=== PATIENT | male | born 1955 | race Caucasian/White ===

== ENCOUNTER 2017-05-26 18:41 | Observation (INO) | payer OTHER, SELFPAY ==
[2017-05-26] MEDS ORDERED: Nitroglycerin 0.4 MG TAB (25 Tab Bottle) ONE (19:03)
[2017-05-26] MEDS ORDERED: Nitroglycerin 2% Ointment 1 INCH/1 GM Packet ONE (19:03)
[2017-05-26 19:28] LABS: #Basophils 0.1 thou/uL (0.0-0.2); #Eosinphils 0.8 thou/uL (0.0-0.7); #Lymphocytes 2.7 thou/uL (1.20-3.40); #Neutrophils 7.5 thou/uL (1.40-6.50); %Basophils 0.7 % (0.0-1.0); %Eosinophils 6.3 % (0.0-10.0); %Lymphocytes 22.2 % (21.0-51.0); %Monocytes 8.1 % (0.0-10.0); %Neutrophils 62.6 % (42.0-75.0); Hemoglobin 14.5 g/dL (14.0-18.0); Mean Corpuscular HGB CONC 27.1 g/dL (32.0-36.0); Mean Corpuscular Hemoglobin 25.4 pg (27.0-31.0); Mean Corpuscular Volume 93.4 fl (80.0-94.0); Mean Platelet Volume 7.1 fL (7.4-10.4); Platelet Count 244 thou/uL (130-400); RBC Distribution Width 11.9 % (11.5-14.5); Red Blood Cell (RBC) Count 5.73 mill/uL (4.70-6.10)
--- NOTE | 2017-05-26 19:53 | RAD ---
FRONTAL RADIOGRAPH CHEST 05/26/17 COMPARISON: None. HISTORY: Chest pain with shortness of breath and congestion. FINDINGS: The lungs are hyperinflated, evidence of air trapping. There is diffuse increased linear interstitial density with bolus change noted in bilateral upper lobes, right greater than left. There is no pneum othorax or pleural fluid and no focal consolidation or alveolar edema. IMPRESSION: Hyperinflated lungs with interstitial prominence and underlying bullous emphysematous change. POS: [facility]
[2017-05-26 19:55] LABS: ALT (SGPT) 16 U/L (8-55); AST (SGOT) 17 U/L (5-34); Alkaline Phosphatase 135 U/L (40-150); Anion Gap 10 mmol/L (10-20); BUN (Urea Nitrogen) 14 mg/dL (8.4-25.7); Bilirubin, Total 0.5 mg/dL (0.2-1.2); CK (CPK) 76 U/L (30-200); Calc. Creatinine Clearance 0 mL/min (70-130); Calcium 9.5 mg/dL (7.8-10.44); Carbon Dioxide 26 mmol/L (22-29); Chloride 104 mmol/L (98-107); Estimated GFR-MDRD Greater than 90; Globulin 3.2 g/dL (2.4-3.5); Glucose 90 mg/dL (70-105); Potassium 4.3 mmol/L (3.5-5.1); Protein, Total 7.2 g/dL (6.0-8.3); Sodium 136 mmol/L (136-145)
[2017-05-26 19:59] LABS: CKMB 2.4 ng/mL (0-6.6); Troponin I Less than 0.010 ng/mL (< 0.028)
[2017-05-26 22:19] LABS: Troponin I 0.012 ng/mL (< 0.028)
[2017-05-26 22:30] VITALS: BMI 17.8
[2017-05-26] MEDS ORDERED: Ondansetron HCl/PF 4 MG/2 ML Vial IVP PRN (23:10)
[2017-05-26] MEDS ORDERED: Docusate 100 MG CAP PO PRN (23:10)
[2017-05-26] MEDS ORDERED: Albuterol Sulfate 2.5 mg/3 ml Neb NEB PRN (23:10)
[2017-05-26] MEDS ORDERED: Nitroglycerin 0.4 MG TAB (25 Tab Bottle) PO PRN (23:10)
[2017-05-26] MEDS ORDERED: Ondansetron ODT 4 MG TAB PO PRN (23:10)
--- NOTE | 2017-05-26 23:20 | PDOC.FPRHP ---
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 He states that sometimes the pain will resolve with rest, but other times it persists. It is described as pressure-like pain, as if someone is sitting on his chest. Initially, it felt like a muscle strain/cramp. It is often in the epigastric region or located directly over the left chest with no radiation to the left arm or jaw. It is associated with shortness of breath. He denies diaphoresis, nausea or vomiting. Patient also states that over the past two days , he has been particularly short of breath. He has been unable to lay back down after waking to use the restroom as he becomes short of breath while laying flat and wakes up short of breath soon after falling asleep. Over the past two days he has also had cough productive of green sputum. He has a 1 PPD smoking history for the past 47 years. He has never officially been diagnosed with COPD , but states a physician once told him he had the signs and symptoms of COPD. Patient denies any fever, nasal congestion, lower extremity swelling, or dysuria. Patient denies any chest pain currently. ED Course: ASA 81 mg, Nitro-Bid 2% ointment, Nitrostat 0.4 mg - Allergies/Adverse Reactions Allergies Allergy/AdvReac Type Severity Reaction Status Date / Time No Known Allergies Allergy Unverified 05/26/17 22:40 - Home Medications Medication Instructions Recorded Confirmed Type Aspirin/Acetaminophen/Caffeine 2 tab PO BID 05/26/17 05/26/17 History [Excedrin Migraine] Docusate [Colace] 100 mg PO BID 05/26/17 05/26/17 History - History PMHx: COPD, Constipation, Migraine SILVER's PSHx: s/p colostomy for obstruction in 2011, Inguinal hernia repair x2 FHx: Grandfather from [place] in his 40's Social: Smokes 1 PPD for past 47 years. Drinks 2-6 beers a night. Endorses history of marijuana use. - Review of Systems General: denies: fever/chills, fatigue ENT: denies: nasal congestion, rhinorrhea Respiratory: reports: cough, congestion, shortness of breath, exercise intolerance Cardiovascular: reports: chest pain, paroxysmal nocturnal dyspnea, orthopnea. denies: edema Gastrointestinal: reports: constipation. denies: nausea, vomiting, abdominal pain Genitourinary: reports: polyuria. denies: incontinence, dysuria Skin: reports: lesions (Lesion on right upper back/neck. Patient states it has been present since he was young. It has grown in size.). denies: rashes Musculoskeletal: denies: pain, tenderness, stiffness Neurological: denies: numbness, syncope, seizure, weakness Psychological: denies: anxiety, depression - Vital signs BP: [171/109] HR: [73] RR: [19] Tmax: [98.3] Pox: [95]% on [RA] Wt: [54.5 kg] - Physical Exam Constitutional: NAD, awake, alert and oriented, well developed HEENT: normocephalic and atraumatic, PERRLA, EOMI, no scleral icterus, normal nasal mucosa, MMM, oropharynx clear, other (Poor dentition) Neck: supple Chest: no-tender to palpation, no lesions Heart: RRR, normal S1/S2, no murmurs/rubs/gallops, pulses present, no edema -Lungs: Diffuse expiratory wheezing throughout. Decreased breath sounds in bilateral lung bases. Abdomen: soft, non-tender, bowel sounds present, other (Colostomy with good output) Musculoskeletal: normal structure, normal tone Neurological: no focal deficit -Skin: Lesion on upper right shoulder/back. Irregular in appearance. Measures approximately 5 cm by 2.5 cm. Heme/Lymphatic: no purpura, no petechia Psychiatric: normal mood and affect, good judgment and insight FMR H&P: Results - Labs Result Diagrams: 05/26/17 19:15 05/26/17 19:15 Lab results: WBC 12.0 thou/uL (4.8-10.8) H 05/26/17 19:15 Hgb 14.5 g/dL (14.0-18.0) 05/26/17 19:15 Hct 53.5 % (42.0-52.0) H 05/26/17 19:15 MCV 93.4 fl (80.0-94.0) 05/26/17 19:15 Plt Count 244 thou/uL (130-400) 05/26/17 19:15 Neutrophils % 62.6 % (42.0-75.0) 05/26/17 19:15 Sodium 136 mmol/L (136-145) 05/26/17 19:15 Potassium 4.3 mmol/L (3.5-5.1) 05/26/17 19:15 Chloride 104 mmol/L (98-107) 05/26/17 19:15 Carbon Dioxide 26 mmol/L (22-29) 05/26/17 19:15 BUN 14 mg/dL (8.4-25.7) 05/26/17 19:15 Creatinine 0.83 mg/dL (0.6-1.3) 05/26/17 19:15 Glucose 90 mg/dL (70-105) 05/26/17 19:15 Calcium 9.5 mg/dL (7.8-10.44) 05/26/17 19:15 Total Bilirubin 0.5 mg/dL (0.2-1.2) 05/26/17 19:15 AST 17 U/L (5-34) 05/26/17 19:15 ALT 16 U/L (8-55) 05/26/17 19:15 Alkaline Phosphatase 135 U/L (40-150) 05/26/17 19:15 Creatine Kinase 76 U/L (30-200) 05/26/17 19:15 CK-MB (CK-2) 2.4 ng/mL (0-6.6) 05/26/17 19:15 B-Natriuretic Peptide 24.7 pg/mL (0-100) 05/26/17 19:15 Serum Total Protein 7.2 g/dL (6.0-8.3) 05/26/17 19:15 Albumin 4.0 g/dL (3.5-5.0) 05/26/17 19:15 - EKG Interpretation EKG: NSR, peaked twaves, shortened NM interval - Radiology Interpretation Chest x-ray Status: image reviewed by me, report reviewed by me Additional comment: Hyperinflated lungs with interstitial prominence and underlying emphysematous change FMR H&P: A/P - Problem List (1) COPD exacerbation Current Visit: Yes Status: Acute Code(s): J44.1 - CHRONIC OBSTRUCTIVE PULMONARY DISEASE W (ACUTE) EXACERBATION (2) Atypical chest pain Current Visit: Yes Status: Acute Code(s): R07.89 - OTHER CHEST PAIN (3) Constipation Current Visit: Yes Status: Chronic Code(s): K59.00 - CONSTIPATION, UNSPECIFIED (4) Elevated BP without diagnosis of hypertension Current Visit: Yes Status: Acute Code(s): R03.0 - ELEVATED BLOOD-PRESSURE READING, W/O DIAGNOSIS OF HTN (5) Skin lesion of back Current Visit: Yes Status: Chronic Code(s): L98.9 - DISORDER OF THE SKIN AND SUBCUTANEOUS TISSUE, UNSPECIFIED (6) Alcohol abuse Current Visit: Yes Status: Chronic Code(s): F10.10 - ALCOHOL ABUSE, UNCOMPLICATED (7) Tobacco abuse Current Visit: Yes Status: Chronic Code(s): Z72.0 - TOBACCO USE - Plan 1. Atypical chest pain - Likely 2/2 to COPD exacerbation - Cardiolite exercise stress test in the AM - Nitro PRN - ASA daily - Trend CE's - EKG NSR with peaked t-waves in lead II - Repeat EKG pending - NPO at midnight - Risk stratification labs: FLP, HgA1c, TSH, Mg, P 2. COPD exacerbation - Patient started on levoquin 750 mg PO daily - Prednisone 40 mg for 5 days - Duonebs q6h scheduled; albuterol q2h for breakthrough shortness of breath and wheezing - Monitor respiratory status - O2 PRN for sats <92% - CXR consistent with emphysematous changes associated with COPD 3. Constipation - On daily colace - s/p colostomy for obstruction 4. Newly diagnosed HTN - BP 161/108 on admission with multiple elevated readings >4 hours apart - Will start antihypertensive and titrate to goal 5. Skin lesion of back - Irregular and has grown over the years - Measures approximately 5 cm long by 2.5 cm wide - Recommend biopsy of lesion to rule out squamous cell carcinoma or other malignant pathology - Possibly keratoacanthoma vs. SCC 6. 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 Alcohol abuse history - [employer] T[employer] on cessation - ASE protocol without medications Disposition/LOS: Admit to telemetry for observation. Plan for stress test in AM. Treat COPD exacerbation and plan to d/c home tomorrow if stress test negative. FMR H&P: Upper Level - Plan I, Wilberto Elkins MD, have evaluated this patient and agree with findings/plan as outlined by sales and marketing intern resident. Pertinent changes/additions are listed here. 1) Atypical chest pain, likely 2/2 #2: However, will place in observation to telemetry and proceed with ACS rule out. Cardiac enzymes have so far been negative. EKG with some isolated peaked t-waves but does not seem to have any major significance, repeat 12-lead pending. Patient currently asymptomatic. History not entirely convincing of cardiac etiology and, overall, more consistent with COPD exacerbation. Nonetheless, HEART score is 4 so will proceed with stress test in AM. Continue prn nitro, O2 for chest pain overnight. Pt already loaded with aspirin. Will add on other appropriate treatment should patient be proven to have CAD. Checking FLP and A1c for further risk stratification. 2) COPD exacerbation: Starting nebs, steroids, antibiotics. CXR and physical exam findings all consistent. Patient needs outpatient PFTs and pulmonology referral if funded. Tobacco abuse education. 3) HTN (new dx): starting HCTZ 4) Multisubstance abuse: counseling. ASE protocol. 5) Large skin lesion: keratoacanthoma v. SCC; if possible, biopsy while here but if not will refer for oupt procedure. Attending Addendum - Attending Addendum Date/Time: 05/28/17 2341 I personally evaluated the patient and discussed the management with Dr. Roper and Dr. Elkins at time of admission. I agree with the History, Examination, Assessment and Plan documented above without any additions noted. 62 yo male with complaint of chest pain and SYKES/SOB presents to ER for evaluation. Admitted for ACS rule out. No evidence of acute cardiac event at present. Stress in AM. Start ASA and other cardiac meds. CP also appears to be related to Acute COPD exacerbation. Will treat with carlos breathing treatments, oral antibiotics, and oral steroids. Treat and adjust medications based on co-morbidities. Labs ordered to further stratify cardiovascular risk. Janneth
[2017-05-26] MEDS ORDERED: methylPREDNISolone Sod Succ/PF 125 MG/2 ML VIAL IVP SCH (23:30)
[2017-05-27] MEDS: Nicotine 14 MG PATCH TD SCH
[2017-05-27 01:15] LABS: Troponin I Less than 0.010 ng/mL (< 0.028)
[2017-05-27 04:54] LABS: Hemoglobin A1c 5.1 % (4.0-6.0)
[2017-05-27 05:01] LABS: Cardiac Risk 2.8 (Less than 4.5)
[2017-05-27 05:03] LABS: Phosphorus 1.8 mg/dL (2.3-4.7)
[2017-05-27] MEDS ORDERED: Potassium Phosphate 9 MMOL in Sodium Chloride 0.9% 100 ML IVPB SCH (05:15)
[2017-05-27] MEDS: Nitroglycerin 2% Ointment 1 INCH/1 GM Packet TOP SCH ×2 (06:06)
--- NOTE | 2017-05-27 07:44 | PDOC.FM ---
- Subjective Subjective: Complains of a chronic cough productive of sputum. Denies chest pain this am. Endorses mild shortness of breath. He says his chest pain starts in his midepigastric region and radiates to his entire chest; feels like a gas bubble and also like pressure. Worse with taking a breath in. - Objective MAR Reviewed: Yes Vital Signs & Weight: Vital Signs (12 hours) Temp Pulse Resp BP BP Pulse Ox 05/27/17 04:13 97.9 F 83 24 H 153/104 H 153/104 H 92 L 05/26/17 23:50 83 16 93 L 05/26/17 23:49 98.3 F 83 20 155/87 H 93 L 05/26/17 23:46 155/87 H 05/26/17 22:18 98.3 F 75 19 171/109 H 95 Weight Weight 54.839 kg I&O: 05/26/17 05/27/17 05/28/17 06:59 06:59 06:59 Intake Total 390 Output Total 600 Balance -210 Result Diagrams: 05/26/17 19:15 05/26/17 19:15 <Layla Salinas - Last Filed: 05/27/17 09:26> - Objective Vital Signs & Weight: Vital Signs (12 hours) Temp Pulse Resp BP BP Pulse Ox 05/27/17 15:00 98.1 F 106 H 20 158/97 H 91 L 05/27/17 14:30 87 20 92 L 05/27/17 13:30 98.4 F 103 H 20 180/103 H 94 L 05/27/17 12:00 180/103 H 05/27/17 09:04 97.7 F 96 16 05/27/17 08:00 149/102 H 05/27/17 07:59 96 16 94 L 05/27/17 07:50 97.7 F 88 16 149/102 H 95 05/27/17 04:13 97.9 F 83 24 H 153/104 H 153/104 H 92 L Weight Admit Weight 54.839 kg Weight 54.839 kg I&O: 05/26/17 05/27/17 05/28/17 06:59 06:59 06:59 Intake Total 390 Output Total 600 Balance -210 Result Diagrams: 05/26/17 19:15 05/26/17 19:15 <Kirsten Keysherine - Last Filed: 05/27/17 15:51> Phys Exam - Physical Examination Constitutional: NAD HEENT: PERRLA, moist MMs Respiratory: no wheezing decreased breath sounds bilaterally Cardiovascular: RRR, no significant murmur Gastrointestinal: soft, non-tender, no distention hypoactive bowel sounds Musculoskeletal: no edema Neurological: non-focal, normal sensation, moves all 4 limbs Psychiatric: normal affect, A&O x 3 Skin: no rash, cap refill <2 seconds <Layla Salinas - Last Filed: 05/27/17 09:26> Dx/Plan (1) Atypical chest pain Code(s): R07.89 - OTHER CHEST PAIN Status: Acute (2) COPD exacerbation Code(s): J44.1 - CHRONIC OBSTRUCTIVE PULMONARY DISEASE W (ACUTE) EXACERBATION Status: Acute (3) HTN (hypertension) Code(s): I10 - ESSENTIAL (PRIMARY) HYPERTENSION Status: Acute (4) Hypophosphatemia Code(s): E83.39 - OTHER DISORDERS OF PHOSPHORUS METABOLISM Status: Acute (5) Alcohol abuse Code(s): F10.10 - ALCOHOL ABUSE, UNCOMPLICATED Status: Chronic (6) Constipation Code(s): K59.00 - CONSTIPATION, UNSPECIFIED Status: Chronic (7) Skin lesion of back Code(s): L98.9 - DISORDER OF THE SKIN AND SUBCUTANEOUS TISSUE, UNSPECIFIED Status: Chronic (8) Tobacco abuse Code(s): Z72.0 - TOBACCO USE Status: Chronic - Plan Plan: 62 yo male who presents with atypical chest pain, admitted for his atypical chest pain likely d/t a suspected COPD exacerbation. 1.)Atypical chest pain-pharm stress test this am. 2.) Suspected COPD exacerbation-He received 125 solumedrol in the ER and was placed on prednisone 40mg PO, Levaquin 750mg IV, duonebs q6h scheduled, and albuterol q2h prn. 3.) HTN ,new, uncontrolled- 25mg HCTZ BID 4) Hypophosphatemia-replaced this am after stress. 5.) Tobacco abuse-will [place] on cessation. Will provide a nicotine patch prn. Recommend outpatient chest CT screening for lung cancer. 6.)Keratoacanthoma vs BCC vs SCC- will recommend outpatient work-up. <Layla Salinas - Last Filed: 05/27/17 09:26> Attending Addendum - Attending Addendum Date/Time: 05/27/17 2350 I personally evaluated the patient and discussed the management with Dr. Salinas. I agree with the History, Examination, Assessment and Plan documented above with any addition or exceptions noted below. Pt seen down in stress test. Oxygen sats still border line. Will continue treatment for copd exacerbation. f/u with stress test results. Pt likely needs another day in the hospital for breathing to improve prior to discharge. <Kaley Keys - Last Filed: 05/27/17 15:51>
[2017-05-27] MEDS ORDERED: Aspirin 325 MG TAB PO SCH (09:00)
[2017-05-27] MEDS ORDERED: hydrALAZINE 25 MG TAB PO SCH (09:00)
[2017-05-27] MEDS ORDERED: FLU VACC QS2017-18 36 mo. & older 0.5 ML SYRINGE IM ONE (09:00)
[2017-05-27] MEDS ORDERED: Docusate 100 MG CAP PO SCH (09:00)
[2017-05-27] MEDS ORDERED: Regadenoson 0.4 MG/5 ML SYRINGE ONE (09:10)
[2017-05-27 11:55] LABS: Amphetamine Not Detected (NotDetected); Barbiturates Screen Not Detected (NotDetected); Benzodiazepine Screen Not Detected (NotDetected); Cocaine Metabolite Screen Not Detected (NotDetected); Medtox Control Line Valid? VALID (VALID); Medtox Reader # READER 4; Methadone Not Detected (NotDetected); Methamphetamine Not Detected (NotDetected); Opiate Screen Not Detected (NotDetected); Oxycodone Screen Not Detected (NotDetected); Phencyclidine (PCP) Not Detected (NotDetected); THC/Cannabinoid Screen Detected (NotDetected); Tricyclic Screen Not Detected (NotDetected)
[2017-05-27] MEDS: Docusate 100 MG CAP PO SCH ×2 (12:54→20:00)
[2017-05-27] MEDS: predniSONE 20 MG TAB PO SCH (12:54)
[2017-05-27] MEDS: Hydrochlorothiazide 25 MG TAB PO SCH ×2 (12:54→20:00)
[2017-05-27] MEDS: Acetaminophen 325 MG TAB PO PRN (12:58)
--- NOTE | 2017-05-27 14:10 | NM ---
CARDIAC SPECT: HISTORY: A 62-year-old male with chest pain, COPD, smoker. TECHNIQUE: A myocardial perfusion scan was performed using the single-isotope 1-day protocol with Technetium 99m sestamibi. Nine mCi were injected intravenously for the rest exam followed by 33 mCi for the stress study. Pharmacologic stress with LexiScan is monitored and interpreted by Rafy Engel, nurse practiti hernan. FINDINGS: Homogeneous tracer distribution is seen in the myocardial segments on stress and rest images without fixed or reversible defects. GATED SPECT LVEF: 62%. WALL MOTION EXAM: Normal. IMPRESSION: Normal myocardial perfusion scan. POS: [facility]
[2017-05-27] MEDS ORDERED: hydrALAZINE 20 MG/ML VIAL SLOW IVP PRN (15:23)
[2017-05-27] MEDS ORDERED: Labetalol HCl 100 MG/20 ML VIAL SLOW IVP PRN (15:25)
--- NOTE | 2017-05-27 15:38 | EKG ---
Test Reason : ROUTINE Blood Pressure : / mmHG Vent. Rate : 080 BPM Atrial Rate : 080 BPM P-R Int : 108 ms QRS Dur : 092 ms QT Int : 370 ms P-R-T Axes : 065 073 076 degrees QTc Int : 426 ms Sinus rhythm with short AR Incomplete right bundle branch block Septal infarct , age undetermined cannot be excluded Abnormal ECG Confirmed by FAROOQ HOLMAN ([id number]) on 05/27/2017 3:38:38 PM Referred By: ALEXANDRA Confirmed By:FAROOQ HOLMAN
[2017-05-28] MEDS: Nicotine 14 MG PATCH TD SCH (00:01)
[2017-05-28] MEDS: Acetaminophen 325 MG TAB PO PRN (04:28)
[2017-05-28] MEDS: Docusate 100 MG CAP PO SCH (08:17)
[2017-05-28] MEDS: Hydrochlorothiazide 25 MG TAB PO SCH (08:17)
[2017-05-28] MEDS: predniSONE 20 MG TAB PO SCH (08:18)
--- NOTE | 2017-05-28 12:01 | PDOC.FM ---
- Subjective Subjective: No acute events overnight. Pt denies shortness of breath or chest pain. He would like to quit smoking and would like assistance. - Objective MAR Reviewed: Yes Vital Signs & Weight: Vital Signs (12 hours) Temp Pulse Resp BP BP Pulse Ox 05/28/17 08:29 95 05/28/17 08:28 80 20 95 05/28/17 08:17 97.3 F L 87 18 05/28/17 07:44 97.3 F L 87 18 127/95 H 93 L 05/28/17 04:28 97.7 F 84 18 138/94 H 94 L 05/28/17 01:13 94 L 05/28/17 00:01 142/94 H Weight Admit Weight 54.839 kg Weight 54.839 kg I&O: 05/27/17 05/28/17 05/29/17 06:59 06:59 06:59 Intake Total 390 480 Output Total 600 600 Balance -210 -120 Result Diagrams: 05/26/17 19:15 05/26/17 19:15 <Layla Salinas - Last Filed: 05/28/17 11:59> - Objective Vital Signs & Weight: Vital Signs (12 hours) Temp Pulse Resp BP Pulse Ox 05/28/17 11:29 97.9 F 89 18 145/96 H 92 L 05/28/17 08:29 95 05/28/17 08:28 80 20 95 05/28/17 08:17 97.3 F L 87 18 05/28/17 07:44 97.3 F L 87 18 127/95 H 93 L Weight Admit Weight 54.839 kg Weight 54.839 kg I&O: 05/27/17 05/28/17 05/29/17 06:59 06:59 06:59 Intake Total 329 713 4710 Output Total 600 600 Balance -210 -120 1625 Result Diagrams: 05/26/17 19:15 05/26/17 19:15 <Kaley Keys - Last Filed: 05/28/17 18:36> Phys Exam - Physical Examination Constitutional: NAD HEENT: PERRLA, moist MMs Respiratory: no wheezing, no rales, clear to auscultation bilateral Cardiovascular: RRR, no significant murmur Gastrointestinal: soft, non-tender, no distention Musculoskeletal: no edema, pulses present Neurological: non-focal, normal sensation Psychiatric: normal affect, A&O x 3 Skin: no rash <Layla Salinas - Last Filed: 05/28/17 11:59> Dx/Plan (1) Atypical chest pain Code(s): R07.89 - OTHER CHEST PAIN Status: Acute (2) COPD exacerbation Code(s): J44.1 - CHRONIC OBSTRUCTIVE PULMONARY DISEASE W (ACUTE) EXACERBATION Status: Acute (3) HTN (hypertension) Code(s): I10 - ESSENTIAL (PRIMARY) HYPERTENSION Status: Acute (4) Hypophosphatemia Code(s): E83.39 - OTHER DISORDERS OF PHOSPHORUS METABOLISM Status: Acute (5) Alcohol abuse Code(s): F10.10 - ALCOHOL ABUSE, UNCOMPLICATED Status: Chronic (6) Constipation Code(s): K59.00 - CONSTIPATION, UNSPECIFIED Status: Chronic (7) Skin lesion of back Code(s): L98.9 - DISORDER OF THE SKIN AND SUBCUTANEOUS TISSUE, UNSPECIFIED Status: Chronic (8) Tobacco abuse Code(s): Z72.0 - TOBACCO USE Status: Chronic - Plan Plan: 62 yo male who presents with atypical chest pain, admitted for his atypical chest pain likely d/t a suspected COPD exacerbation. 1.)Atypical chest pain-pharm stress test normal. 2.) Suspected COPD exacerbation-He received 125 solumedrol in the ER and was placed on prednisone 40mg PO, Levaquin 750mg IV, duonebs q6h scheduled, and albuterol q2h prn. We will discharge the pt on a 5 course of prednisone and levaquin with albuterol prn and recommend follow-up for spirometry in our clinic. 3.) HTN ,new,controlled - 25mg HCTZ BID 4) Hypophosphatemia, resolved. 5.) Tobacco abuse-will [place] on cessation. Will provide a nicotine patch prn. Recommend outpatient chest CT screening for lung cancer. Will send the pt with a prescription for nicotine patches. 6.)Keratoacanthoma vs BCC vs SCC- recommend outpatient workup. <Layla Salinas - Last Filed: 05/28/17 11:59> Attending Addendum - Attending Addendum Date/Time: 05/28/17 5169 I personally evaluated the patient and discussed the management with Dr. Salinas. I agree with the History, Examination, Assessment and Plan documented above with any addition or exceptions noted below. Stress test negative. Breathing improved. Pt will be discharged. <Kaley Keys - Last Filed: 05/28/17 18:36>
[2017-05-28 12:18] VITALS: BP 145/96; TEMP 97.9
--- NOTE | 2017-05-30 19:49 | EKG ---
Test Reason : CP Blood Pressure : / mmHG Vent. Rate : 092 BPM Atrial Rate : 092 BPM P-R Int : 108 ms QRS Dur : 078 ms QT Int : 336 ms P-R-T Axes : 074 070 075 degrees QTc Int : 415 ms Sinus rhythm with short [place] Septal infarct , age undetermined Peaked T waves Abnormal ECG Confirmed by GUILLE HAM, IRMA Arroyo ([id number]), avid editor JARED WELCH ([id number]) on 05/30/2017 7:49:40 PM Referred By: GUILLE Confirmed By:IRMA HAN MD
== END 2017-05-28 14:11 | disposition home or self-care (01) ==
LOC: ERS 18:41 → 2SW 20:40
PROVIDERS: ADMIT Student in an Organized Health Care Education/Training Program; ATTEND Student in an Organized Health Care Education/Training Program
DX: R07.89 Other chest pain (principal); K59.00 Constipation, unspecified; G43.909 Migraine, unspecified, not intractable, without status migrainosus; F17.210 Nicotine dependence, cigarettes, uncomplicated; I10 Essential (primary) hypertension; E83.39 Other disorders of phosphorus metabolism; L98.9 Disorder of the skin and subcutaneous tissue, unspecified; F10.10 Alcohol abuse, uncomplicated; Z79.899 Other long term (current) drug therapy; Z88.6 Allergy status to analgesic agent; Z88.8 Allergy status to other drugs, medicaments and biological substances; Z93.3 Colostomy status; Z98.890 Other specified postprocedural states
CPT/HCPCS: 36415; 71045; 78452; 80053; 80061; 80306; 82553; 83036; 83735; 83880; 84100; 84443; 84484; 85025; 90471; 90682; 90732; 93005; 93010; 93017; 94640; 94760; 96365; 96366; 96375; A9500; G0008; G0009; G0378; J2785; J2930; J7050; J7506; J7620; Q2036

== ENCOUNTER 2017-12-18 23:41 | Inpatient (IN) | payer OTHER ==
[2017-12-19] MEDS ORDERED: Ondansetron HCl/PF 4 MG/2 ML Vial ONE (00:07)
[2017-12-19] MEDS ORDERED: Morphine 4 MG/ML VIAL ONE ×2 (00:07→02:37)
[2017-12-19 00:14] LABS: #Basophils 0.1 thou/uL (0.0-0.2); #Eosinphils 0.2 thou/uL (0.0-0.7); #Lymphocytes 1.4 thou/uL (1.20-3.40); #Monocytes 0.3 thou/uL (0.11-0.59); #Neutrophils 9.3 thou/uL (1.40-6.50); %Basophils 0.5 % (0.0-1.0); %Eosinophils 1.4 % (0.0-10.0); %Lymphocytes 12.2 % (21.0-51.0); %Monocytes 2.7 % (0.0-10.0); %Neutrophils 83.2 % (42.0-75.0); Hemoglobin 19.1 g/dL (14.0-18.0); Mean Corpuscular HGB CONC 33.3 g/dL (32.0-36.0); Mean Corpuscular Hemoglobin 31.7 pg (27.0-31.0); Mean Corpuscular Volume 95.1 fL (78.0-98.0); Mean Platelet Volume 6.4 fL (7.4-10.4); Platelet Count 275 thou/uL (130-400); Red Blood Cell (RBC) Count 6.03 mill/uL (4.70-6.10); White Blood Cell (WBC) Count 11.2 thou/uL (4.8-10.8)
[2017-12-19 00:33] LABS: ALT (SGPT) 34 U/L (8-55); AST (SGOT) 30 U/L (5-34); Alkaline Phosphatase 154 U/L (40-150); Anion Gap 18 mmol/L (10-20); BUN (Urea Nitrogen) 11 mg/dL (8.4-25.7); Bilirubin, Total 1.1 mg/dL (0.2-1.2); Calc. Creatinine Clearance 0 mL/min (70-130); Calcium 11.2 mg/dL (7.8-10.44); Carbon Dioxide 28 mmol/L (22-29); Chloride 92 mmol/L (98-107); Estimated GFR-MDRD Greater than 90; Globulin 4.1 g/dL (2.4-3.5); Glucose 121 mg/dL (70-105); Lipase 44 U/L (8-78); Protein, Total 9.1 g/dL (6.0-8.3); Sodium 134 mmol/L (136-145)
[2017-12-19 02:23] LABS: Bilirubin Negative (Negative); Blood, Urine Negative (Negative); Clarity CLEAR (Clear); Glucose, Urine (Dipstick) Negative (Negative); Leukocyte Negative (Negative); Nitrite Negative (Negative); Protein, Urine (Dipstick) 30 mg/dL (Neg-Trace); Specific Gravity, Urine 1.038 (1.002-1.036); Urobilinogen 0.2 mg/dL (0.2-1.0); pH, Urine 7.5 (5.0-9.0)
[2017-12-19 02:25] LABS: Bacteria/HPF None Seen HPF (None Seen); RBC/HPF 0-3 HPF (0-3); Squamous Epithelial None Seen HPF (0-3); WBC/HPF None Seen HPF (0-3)
[2017-12-19 02:26] LABS: Sperm-AUWi Flag 24.9 (0-9.9)
[2017-12-19 02:33] LABS: Hyaline Casts/LPF NONE SEEN LPF (0-3 Hyaline); Sperm/HPF 1+ HPF (None Seen)
[2017-12-19] MEDS ORDERED: cloNIDine 0.1 MG TAB ONE (02:46)
[2017-12-19] MEDS ORDERED: Ondansetron HCl/PF 4 MG/2 ML Vial IVP PRN ×2 (03:29→10:37)
[2017-12-19] MEDS ORDERED: Ondansetron ODT 4 MG TAB SL PRN (03:29)
[2017-12-19] MEDS ORDERED: Dextrose 5 % And 0.9 % NaCl 1,000 ML IV SCH (03:30)
[2017-12-19 05:40] VITALS: BMI 17.6
[2017-12-19] MEDS ORDERED: Chloraseptic Spray 180 ml Bottle PO PRN (07:14)
--- NOTE | 2017-12-19 07:34 | RAD ---
PORTABLE CHEST: Date: 12/19/17 PROVIDED CLINICAL HISTORY: NG tube placement. FINDINGS: Single frontal view of the lower chest and upper abdomen was submitted. An enteric catheter is noted, tip of which overlies the left upper quadrant laterally. The visualized lung bases are clear. There is no evidence for pneumoperitoneum. IMPRESSION: As above. POS: [facility]
--- NOTE | 2017-12-19 08:20 | CT ---
PRELIMINARY REPORT/[facility]/EMERGENCY AFTER HOURS PROCEDURE: EXAM: CT Abdomen and Pelvis With Intravenous Contrast EXAM DATE/TIME: 12/19/2017 12:54 AM CLINICAL HISTORY: 62 years old, male; Pain; Abdominal pain; Epigastric; Patient HX: PT presents with 7 hours of epigast fadia pain. PT denies n/v, urinary symptoms, fever. PT has colostomy due to 'blockage' and he feels it has had less output today. PT denies h/o similar pain. TECHNIQUE: Axial computed tomography images of the abdomen and pelvis with intravenous contrast. Coronal reforma tted images were created and reviewed. CONTRAST: 100 ml of ISOVUE administered intravenously. COMPARISON: No relevant prior studies available. FINDINGS: Lower thorax: There are emphysematous changes of the lung bases and there is atelectatic change or sc arring present. ABDOMEN: Liver: There is focal fat in liver adjacent to the falciform ligament. Gallbladder and bile ducts: Normal. No calcified stones. No ductal dilation. Pancreas: There is mild pancreatic ductal dilation but no visible mass or inflammatory change. Spleen: Normal. No splenomegaly. Adrenals: Normal. No mass. Kidneys and ureters: Normal. No hydronephrosis. Stomach and bowel: There are postoperative changes involving the bowel. 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 There are dilated small bowel loops with air-fluid levels with transition at the level of the i leum suspicious for small bowel obstruction. Appendix: No evidence of appendicitis. PELVIS: Bladder: Unremarkable as visualized. Reproductive: Unremarkable as visualized. ABDOMEN and PELVIS: Intraperitoneal space: Normal. No free air. No significant fluid collection. Bones/joints: There is diffuse osteopenia and there are degenerative changes of the spine. There are chronic right-sided rib fractures. There is mild S. type scoliosis. Soft tissues: Unremarkable. Vasculature: There are atherosclerotic aortic and iliac and femoral artery calcifications. Lymph nodes: Normal. No enlarged lymph nodes. IMPRESSION: There are dilated small bowel loops with air-fluid levels with transition at the level of the ileum s uspicious for small bowel obstruction. Thank you for allowing us to participate in the care of your patient. Dictated and Authenticated by: Doron Gregory MD 12/19/2017 2:25 AM Central Time ([place] & [place]) FINAL REPORT EMERGENCY AFTER HOURS CT ABDOMEN AND PELVIS: Date: 12/19/17 IMPRESSION: I agree with the preliminary interpretation given by [facility]. Evidence for small bowel obstruction. Dist al jejunum/proximal ileum is suspected as the transition point. There is no evidence for pneumatosis or portal venous gas. There is no evidence for pneumoperitoneum. POS: [facility]
--- NOTE | 2017-12-19 10:21 | HP ---
DATE OF ADMISSION: 12/19/2017 CHIEF COMPLAINT: Small-bowel obstruction. HISTORY OF PRESENT ILLNESS: This is a 62-year-old male with a history of left colectomy with Singletary n's procedure and end colostomy at [facility] 6 years ago for diverticulitis. His postop cou rse was uneventful. Mr. Vergara is not desired colostomy reversal. He has had no problems until last n ight, started to have more belly distention, nausea, and vomiting. Seen in the emergency department where he was found to have a small-bowel obstruction on CT scan. Hemodynamically stable. Pain is co ntrolled. NG tube is placed first thing this morning. He is having some fairly significant pain in his oropharynx from the NG tube. Denies previous obstruction. Denies inflammatory bowel disease or Crohn's. Unsure of recent colonoscopy. PAST MEDICAL HISTORY: Includes dyslipidemia, mild chronic COPD. PAST SURGICAL HISTORY: As above. MEDICINES TAKEN DAILY: Lipitor. ALLERGIES: No known drug allergies. SOCIAL HISTORY: He smokes. No alcohol or other drugs. REVIEW OF SYSTEMS: Otherwise, negative unless described above. PHYSICAL EXAMINATION: VITAL SIGNS: Blood pressure 181/85, pulse 80, respirations 20, temperature 97.5. HEENT: Sclerae are anicteric. Oropharynx clear. NECK: No lymphadenopathy. CHEST: Clear. HEART: Regular rhythm. ABDOMEN: Soft. Diffuse mildly tender without guarding or rebound. Diffuse decrease in bowel sounds . Well-healed midline incision without hernia. Colostomy in the left abdomen has stool in the bag. EXTREMITIES: No ischemia or edema to extremities. LABORATORY DATA: White blood cell count is 11, hemoglobin is 19, platelet count is 275. Sodium 134, potassium 4.0, creatinine 0.84. ASSESSMENT: 1. Small-bowel obstruction, likely secondary to adhesions. 2. Hypertension. PLAN: NG tube, n.p.o. today likely Gastrografin, small bowel follow through tomorrow if not improved .
[2017-12-19] MEDS ORDERED: Promethazine HCl 25 MG/ML VIAL IM PRN (10:37)
[2017-12-19] MEDS ORDERED: Dextrose 50% Abboject 50 ML SYRINGE SLOW IVP PRN (10:37)
[2017-12-19] MEDS ORDERED: Labetalol HCl 100 MG/20 ML VIAL SLOW IVP PRN (10:37)
[2017-12-19] MEDS ORDERED: Dextrose 5% in Water 1,000 ML IV PRN (10:37)
[2017-12-19] MEDS ORDERED: Ondansetron ODT 4 MG TAB PO PRN (10:37)
[2017-12-19] MEDS: Sodium Chloride 0.9% 1,000 ML IV SCH ×2 (12:12→20:46)
[2017-12-19] MEDS: Morphine 4 MG/ML VIAL SLOW IVP PRN ×2 (13:31→20:25)
[2017-12-19] MEDS ORDERED: ISOVUE-370 76%-LOCM 1 ML ONE (14:29)
[2017-12-19] MEDS: Enoxaparin Sodium 40 MG/0.4 ML SYRINGE SC SCH (20:25)
[2017-12-19] MEDS: Famotidine/PF 20 mg/2ml Vial SLOW IVP SCH (20:25)
[2017-12-20] MEDS: Morphine 4 MG/ML VIAL SLOW IVP PRN ×6 (03:33→20:18)
[2017-12-20 04:58] LABS: #Eosinphils 0.2 thou/uL (0.0-0.7); #Lymphocytes 1.7 thou/uL (1.20-3.40); #Monocytes 0.7 thou/uL (0.11-0.59); #Neutrophils 5.5 thou/uL (1.40-6.50); %Basophils 0.4 % (0.0-1.0); %Eosinophils 2.3 % (0.0-10.0); %Lymphocytes 21.1 % (21.0-51.0); %Monocytes 8.1 % (0.0-10.0); %Neutrophils 68.1 % (42.0-75.0); Hemoglobin 17.8 g/dL (14.0-18.0); Mean Corpuscular HGB CONC 33.3 g/dL (32.0-36.0); Mean Corpuscular Hemoglobin 32.3 pg (27.0-31.0); Mean Platelet Volume 6.8 fL (7.4-10.4); Platelet Count 239 thou/uL (130-400); RBC Distribution Width 12.1 % (11.5-14.5); White Blood Cell (WBC) Count 8.1 thou/uL (4.8-10.8)
[2017-12-20 05:17] LABS: Anion Gap 13 mmol/L (10-20); BUN (Urea Nitrogen) 10 mg/dL (8.4-25.7); Calc. Creatinine Clearance 80 mL/min (70-130); Calcium 8.5 mg/dL (7.8-10.44); Carbon Dioxide 23 mmol/L (22-29); Chloride 106 mmol/L (98-107); Estimated GFR-MDRD Greater than 90; Glucose 95 mg/dL (70-105); Potassium 3.4 mmol/L (3.5-5.1); Sodium 139 mmol/L (136-145)
[2017-12-20] MEDS: Sodium Chloride 0.9% 1,000 ML IV SCH ×3 (07:02→20:19)
[2017-12-20] MEDS: Famotidine/PF 20 mg/2ml Vial SLOW IVP SCH ×2 (08:32→20:18)
--- NOTE | 2017-12-20 09:16 | PDOC.GSPN ---
Surgery Progress Note: Subj - Subjective Narrative: Not much colostomy output Surgery Progress Note: Obj - Vital signs Vital signs: Vital Signs - Most Recent Temp Pulse Resp BP Pulse Ox 97.5 F L 69 16 162/99 H 91 L 12/20/17 07:11 12/20/17 07:11 12/20/17 07:11 12/20/17 07:11 12/20/17 07:11 - Physical Exam General: no distress Cardiovascular: regular rate and rhythm Respiratory: clear to auscultation Abdomen: soft, non tender, distended Wound: ostomy/colostomy (with minimal output) Surgery Progress Note: Results - Labs Result Diagrams: 12/20/17 04:14 12/20/17 04:14 Lab results: Laboratory Results - last 24 hr 12/20/17 12/20/17 04:14 04:14 WBC 8.1 RBC 5.50 Hgb 17.8 Hct 53.4 H MCV 97.0 MCH 32.3 H MCHC 33.3 RDW 12.1 Plt Count 239 MPV 6.8 L Neutrophils % 68.1 Lymphocytes % 21.1 Monocytes % 8.1 Eosinophils % 2.3 Basophils % 0.4 Neutrophils # 5.5 Lymphocytes # 1.7 Monocytes # 0.7 H Eosinophils # 0.2 Basophils # 0.0 Sodium 139 Potassium 3.4 L Chloride 106 Carbon Dioxide 23 Anion Gap 13 BUN 10 Creatinine 0.76 Estimated GFR (MDRD) Greater than 90 Glucose 95 Calcium 8.5 Surgery Progress Note: A/P - Problem (1) Small bowel obstruction Current Visit: Yes Code(s): K56.609 - UNSP INTESTNL OBST, UNSP TO PARTIAL VERSUS COMPLETE OBST Status: Acute - Plan Plan: SBFT today
[2017-12-20] MEDS: hydrALAZINE 20 MG/ML VIAL SLOW IVP PRN (13:28)
--- NOTE | 2017-12-20 14:24 | RAD ---
SMALL BOWEL FOLLOW THORUGH: DATE: 12/20/17. PROVIDED CLINICAL HISTORY: Small bowel obstruction. FINDINGS: Gastrografin was given via the patient's enteric catheter. Multiple dilated loops of small bowel are opacified. There is no contrast material seen within the colon at the 3 hour jacklyn. The stomach rem ains prominently distended. IMPRESSION: Findings compatible with small bowel obstruction. Consider followup radiographs if indicated. POS: MITCH
[2017-12-20] MEDS ORDERED: MD-Gastroview 120 ML BOT ONE (14:45)
[2017-12-20] MEDS: Enoxaparin Sodium 40 MG/0.4 ML SYRINGE SC SCH (20:17)
[2017-12-21] MEDS: Morphine 4 MG/ML VIAL SLOW IVP PRN ×2 (01:08→05:55)
[2017-12-21] MEDS: hydrALAZINE 20 MG/ML VIAL SLOW IVP PRN (01:09)
[2017-12-21] MEDS: Sodium Chloride 0.9% 1,000 ML IV SCH (05:56)
[2017-12-21] MEDS ORDERED: CEFAZOLIN/Water 2 GM/20 ML SYRINGE ONE (06:54)
--- NOTE | 2017-12-21 08:14 | PRG ---
DATE OF SERVICE: 12/21/2017 HISTORY: Mr. Vergara's small bowel follow through never had contrast into the colon. He developed sign ificant distention and pain. He feels better now that he was on NG decompression overnight. His bow el obstruction is not any better. I am consenting him today for exploratory laparotomy, lysis of adhesions, and indicated procedures. He does give consent. We plan on doing that today.
[2017-12-21] MEDS ORDERED: Fentanyl 100 MCG/2 ML VIAL ONE ×3 (08:50→11:02)
[2017-12-21] MEDS: Famotidine/PF 20 mg/2ml Vial SLOW IVP SCH ×2 (08:55→20:12)
[2017-12-21] MEDS ORDERED: Albumin 5% 500 ML ONE (09:27)
[2017-12-21] MEDS ORDERED: Promethazine HCl 25 MG/ML VIAL IM PRN ×2 (10:49→11:38)
[2017-12-21] MEDS ORDERED: Morphine Sulfate 2 MG/ML SYRINGE SLOW IVP PRN (10:49)
[2017-12-21] MEDS ORDERED: Ondansetron HCl/PF 4 MG/2 ML Vial IVP PRN ×2 (10:49→11:38)
[2017-12-21] MEDS ORDERED: Promethazine HCl 25 MG/ML VIAL SLOW IVP PRN (10:49)
[2017-12-21] MEDS ORDERED: Meperidine HCl/PF 25 MG/ML VIAL SLOW IVP PRN (10:49)
[2017-12-21] MEDS ORDERED: Dexamethasone 4 mg/ml Vial ONE (11:11)
[2017-12-21] MEDS ORDERED: Lidocaine 1% (PF) 30 ML VIAL ONE (11:17)
[2017-12-21] MEDS ORDERED: Bupivacaine HCl 0.5%/Epinephrine 1:200,000/PF 30 ml Vial ONE (11:25)
[2017-12-21] MEDS ORDERED: Zolpidem Tartrate 5 MG TAB PO PRN (11:38)
[2017-12-21] MEDS ORDERED: Naloxone HCl 0.4 mg/ml Vial IV PRN (11:38)
[2017-12-21] MEDS ORDERED: diphenhydrAMINE 25 MG CAP PO PRN (11:38)
[2017-12-21] MEDS ORDERED: diphenhydrAMINE 50 MG/ML VIAL IM/IV PRN (11:38)
[2017-12-21] MEDS ORDERED: fentaNYL Citrate/PF 2,000 MCG in Sodium Chloride 0.9% 60 ML IV PRN (11:38)
[2017-12-21] MEDS ORDERED: hydrALAZINE 20 MG/ML VIAL ONE (11:44)
[2017-12-21] MEDS ORDERED: Acetaminophen 1,000 MG in Premix Bag 1 BAG IVPB SCH (12:00)
[2017-12-21] MEDS: Ketorolac Tromethamine 30 MG/ML VIAL IVP SCH ×2 (12:30→18:12)
[2017-12-21] MEDS: D5 1/2 NS w/20 mEq KCL 1,000 ML IV SCH ×2 (12:47→20:12)
[2017-12-21] MEDS ORDERED: Lidocaine 1% PF 5 ML VIAL ONE (13:16)
[2017-12-21] MEDS ORDERED: Dexamethasone 20 MG/5 ML VIAL ONE (13:16)
[2017-12-21] MEDS ORDERED: PHENYLEPHRINE-NS 100 MCG/ML 10 ML SYRINGE ONE (13:16)
[2017-12-21] MEDS ORDERED: Succinylcholine Chloride 20 MG/ML 10 ml SYRINGE FS ONE (13:16)
[2017-12-21] MEDS ORDERED: Ondansetron HCl/PF 4 MG/2 ML Vial ONE (13:16)
[2017-12-21] MEDS ORDERED: Glycopyrrolate 0.2 MG/ML 5 ML SYRINGE ONE (13:16)
[2017-12-21] MEDS ORDERED: Ketorolac Tromethamine 30 MG/ML VIAL ONE (13:16)
[2017-12-21] MEDS ORDERED: PROPOFOL 200 MG/20 ML VIAL ONE (13:16)
[2017-12-21] MEDS: Acetaminophen 1,000 MG in Premix Bag 1 BAG IVPB SCH (18:12)
[2017-12-21] MEDS: Enoxaparin Sodium 40 MG/0.4 ML SYRINGE SC SCH (20:12)
[2017-12-22] MEDS: Acetaminophen 1,000 MG in Premix Bag 1 BAG IVPB SCH ×3 (00:13→11:51)
[2017-12-22] MEDS: Ketorolac Tromethamine 30 MG/ML VIAL IVP SCH ×5 (00:13→23:42)
[2017-12-22] MEDS: Acetaminophen 500 MG TAB PO SCH ×4 (05:16→23:42)
[2017-12-22] MEDS: Famotidine/PF 20 mg/2ml Vial SLOW IVP SCH ×2 (08:32→20:32)
[2017-12-22] MEDS: D5 1/2 NS w/20 mEq KCL 1,000 ML IV SCH ×3 (08:38→22:33)
[2017-12-22 09:17] LABS: #Basophils 0.1 thou/uL (0.0-0.2); #Monocytes 0.5 thou/uL (0.11-0.59); #Neutrophils 3.3 thou/uL (1.40-6.50); %Basophils 1.3 % (0.0-1.0); %Eosinophils 0.2 % (0.0-10.0); %Monocytes 9.4 % (0.0-10.0); Hemoglobin 16.5 g/dL (14.0-18.0); Mean Corpuscular HGB CONC 32.9 g/dL (32.0-36.0); Mean Corpuscular Hemoglobin 32.3 pg (27.0-31.0); Mean Corpuscular Volume 98.2 fL (78.0-98.0); Mean Platelet Volume 7.1 fL (7.4-10.4); Platelet Count 181 thou/uL (130-400); RBC Distribution Width 12.2 % (11.5-14.5); White Blood Cell (WBC) Count 4.8 thou/uL (4.8-10.8)
[2017-12-22 09:21] LABS: Anion Gap 10 mmol/L (10-20); BUN (Urea Nitrogen) 15 mg/dL (8.4-25.7); Calc. Creatinine Clearance 88 mL/min (70-130); Calcium 8.6 mg/dL (7.8-10.44); Carbon Dioxide 28 mmol/L (22-29); Chloride 106 mmol/L (98-107); Estimated GFR-MDRD Greater than 90; Glucose 111 mg/dL (70-105); Potassium 3.6 mmol/L (3.5-5.1); Sodium 140 mmol/L (136-145)
--- NOTE | 2017-12-22 09:47 | PDOC.GSPN ---
Surgery Progress Note: Subj - Subjective Patient reports: no new complaints Narrative: No nausea, pain controlled Surgery Progress Note: Obj - Vital signs Vital signs: Vital Signs - Most Recent Temp Pulse Resp BP Pulse Ox 97.6 F 64 16 131/77 94 L 12/22/17 07:25 12/22/17 07:25 12/22/17 07:25 12/22/17 07:25 12/22/17 07:25 - Physical Exam General: no distress Abdomen: soft, nondistended, appropriately tender Wound: dressing clean,dry,intact Surgery Progress Note: Results - Labs Result Diagrams: 12/22/17 08:54 12/22/17 08:54 Lab results: Laboratory Results - last 24 hr 12/22/17 12/22/17 08:54 08:54 WBC 4.8 RBC 5.10 Hgb 16.5 Hct 50.1 MCV 98.2 H MCH 32.3 H MCHC 32.9 RDW 12.2 Plt Count 181 MPV 7.1 L Neutrophils % 69.0 Lymphocytes % 20.0 L Monocytes % 9.4 Eosinophils % 0.2 Basophils % 1.3 H Neutrophils # 3.3 Lymphocytes # 1.0 L Monocytes # 0.5 Eosinophils # 0.0 Basophils # 0.1 Sodium 140 Potassium 3.6 Chloride 106 Carbon Dioxide 28 Anion Gap 10 BUN 15 Creatinine 0.69 Estimated GFR (MDRD) Greater than 90 Glucose 111 H Calcium 8.6 Surgery Progress Note: A/P - Problem (1) Small bowel obstruction Current Visit: Yes Code(s): K56.609 - UNSP INTESTNL OBST, UNSP TO PARTIAL VERSUS COMPLETE OBST Status: Acute - Plan Plan: DC NG and peraza -sips of clears
[2017-12-22] MEDS: Enoxaparin Sodium 40 MG/0.4 ML SYRINGE SC SCH (20:32)
[2017-12-23] MEDS: Acetaminophen 500 MG TAB PO SCH ×2 (05:43→12:55)
[2017-12-23] MEDS: Ketorolac Tromethamine 30 MG/ML VIAL IVP SCH (05:44)
[2017-12-23] MEDS: Famotidine/PF 20 mg/2ml Vial SLOW IVP SCH ×2 (08:16→21:47)
[2017-12-23] MEDS ORDERED: traMADol HCl 50 MG TAB PO PRN (11:35)
[2017-12-23] MEDS ORDERED: D5 1/2 NS w/20 mEq KCL 1,000 ML IV SCH (11:36)
--- NOTE | 2017-12-23 11:37 | PDOC.GSPN ---
Surgery Progress Note: Subj - Subjective Narrative: Patient c/o more bloating today Surgery Progress Note: Obj - Vital signs Vital signs: Vital Signs - Most Recent Temp Pulse Resp BP Pulse Ox 98.1 F 84 18 141/85 H 93 L 12/23/17 07:15 12/23/17 07:15 12/23/17 07:15 12/23/17 07:15 12/23/17 07:15 - Physical Exam General: no distress Cardiovascular: regular rate and rhythm Respiratory: clear to auscultation Abdomen: soft, appropriately tender, distended Wound: healing well Surgery Progress Note: Results - Labs Result Diagrams: 12/22/17 08:54 12/22/17 08:54 Surgery Progress Note: A/P - Problem (1) Small bowel obstruction Current Visit: Yes Code(s): K56.609 - UNSP INTESTNL OBST, UNSP TO PARTIAL VERSUS COMPLETE OBST Status: Acute - Plan Plan: Resolving expected postop ileus. -cont liquids until more bowel function
--- NOTE | 2017-12-23 14:58 | OP ---
DATE OF SURGERY: 12/21/2017 PREOPERATIVE DIAGNOSIS: Small bowel obstruction. POSTOPERATIVE DIAGNOSIS: Small bowel obstruction. PROCEDURES: Exploratory laparotomy, lysis of multiple abdominal adhesions by Dr. Jeff. ANESTHESIA: General. ESTIMATED BLOOD LOSS: 20 mL COMPLICATIONS: None. TECHNIQUE: The patient was taken to the operating room and placed supine on the table. After genera l anesthetic was obtained, a Ballesteros was placed. The abdomen was prepped and draped in a sterile fashi on. Midline incision was made into the abdominal cavity, multiple adhesions are taken down from the posterior abdominal wall, had lots of adhesions down in his pelvis. Some dense adhesions from his di stal small bowel to his rectal stump. These were all taken down sharply, releasing the small intesti ne. Ligament of Treitz was run to the ileocecal valve without evidence of further obstruction after all adhesions were taken down. There were no full thickness injuries. A few serosal tears were over sewn using silk suture. All instrument counts, needle counts, lap counts were correct. The abdomen was irrigated. The midline fascia was closed using #1 PDS from the top and the bottom and tied in th e middle. Subcutaneous tissues were irrigated. The skin was closed using 3-0 Vicryl, 4-0 Monocryl, and Dermabond. The patient was en route to recovery in stable condition. All instrument counts, nee dle counts, lap counts were correct.
[2017-12-23] MEDS: traMADol HCl 50 MG TAB PO PRN (17:35)
[2017-12-23] MEDS: Enoxaparin Sodium 40 MG/0.4 ML SYRINGE SC SCH (21:47)
[2017-12-24] MEDS: traMADol HCl 50 MG TAB PO PRN ×2 (00:23→14:06)
[2017-12-24] MEDS: Famotidine/PF 20 mg/2ml Vial SLOW IVP SCH ×2 (09:07→21:01)
--- NOTE | 2017-12-24 09:09 | PDOC.GSPN ---
Surgery Progress Note: Subj - Subjective Patient reports: no new complaints (Passing gas/stool in bag) Surgery Progress Note: Obj - Vital signs Vital signs: Vital Signs - Most Recent Temp Pulse Resp BP Pulse Ox 98.3 F 92 16 159/112 H 92 L 12/24/17 04:00 12/24/17 04:00 12/24/17 04:00 12/24/17 04:00 12/24/17 04:00 - Physical Exam General: no distress Cardiovascular: regular rate and rhythm Respiratory: clear to auscultation Abdomen: soft, positive bowel sounds, distended Wound: healing well Surgery Progress Note: Results - Labs Result Diagrams: 12/22/17 08:54 12/22/17 08:54 Surgery Progress Note: A/P - Problem (1) Small bowel obstruction Current Visit: Yes Code(s): K56.609 - UNSP INTESTNL OBST, UNSP TO PARTIAL VERSUS COMPLETE OBST Status: Acute - Plan Plan: Post of lysis of adhesions -GI soft diet -home tomorrow if tolerates
[2017-12-24] MEDS: hydrALAZINE 20 MG/ML VIAL SLOW IVP PRN ×2 (10:23→16:45)
[2017-12-24] MEDS: Enoxaparin Sodium 40 MG/0.4 ML SYRINGE SC SCH (21:01)
[2017-12-25] MEDS: Famotidine/PF 20 mg/2ml Vial SLOW IVP SCH (08:49)
[2017-12-25 12:00] VITALS: BP 160/92; TEMP 98.3
--- NOTE | 2017-12-26 12:19 | EKG ---
Test Reason : Blood Pressure : / mmHG Vent. Rate : 076 BPM Atrial Rate : 076 BPM P-R Int : 132 ms QRS Dur : 100 ms QT Int : 378 ms P-R-T Axes : 073 071 079 degrees QTc Int : 425 ms Normal sinus rhythm Incomplete right bundle branch block Septal infarct , age undetermined Abnormal ECG Confirmed by NAHUM PEARSON ([id number]), primer expeditor and drier JAIRO DOWNING ([id number]) on 12/26/2017 12:19:07 PM Referred By: Confirmed By:NAHUM PEARSON
== END 2017-12-25 15:37 | disposition home or self-care (01) | DRG 337 ==
LOC: ERS 23:41 → SURG B 12-19 02:37
PROVIDERS: ADMIT Surgery; ATTEND Surgery
PROC: 0DN80ZZ Release Small Intestine, Open Approach (ICD-10-PCS; principal; 2017-12-21)
DX: K56.50 Intestinal adhesions [bands], unspecified as to partial versus complete obstruction (principal); I10 Essential (primary) hypertension; Z93.3 Colostomy status; J44.9 Chronic obstructive pulmonary disease, unspecified; E78.5 Hyperlipidemia, unspecified; F17.210 Nicotine dependence, cigarettes, uncomplicated
CPT/HCPCS: 36415; 71045; 74177; 74250; 80048; 80053; 81003; 81015; 83690; 85025; 93005; 96361; 96374; 96375; 96376; J0131; J0360; J0670; J1100; J1650; J1885; J2001; J2270; J2405; J2704; J3010; J7050; P9045; S0028

== ENCOUNTER 2019-04-18 11:30 | Emergency (ER) | payer OTHER ==
[2019-04-18 12:18] LABS: #Eosinphils 0.2 thou/uL (0.0-0.7); #Lymphocytes 2.3 thou/uL (1.20-3.40); #Monocytes 0.5 thou/uL (0.11-0.59); #Neutrophils 7.1 thou/uL (1.40-6.50); %Basophils 0.2 % (0.0-1.0); %Eosinophils 1.5 % (0.0-10.0); %Lymphocytes 22.7 % (21.0-51.0); %Monocytes 4.5 % (0.0-10.0); %Neutrophils 71.1 % (42.0-75.0); Hemoglobin 18.1 g/dL (14.0-18.0); Mean Corpuscular Hemoglobin 30.2 pg (27.0-31.0); Mean Corpuscular Volume 94.4 fL (78.0-98.0); Mean Platelet Volume 6.3 fL (7.4-10.4); Platelet Count 301 thou/uL (130-400); Red Blood Cell (RBC) Count 5.99 mill/uL (4.70-6.10); White Blood Cell (WBC) Count 9.9 thou/uL (4.8-10.8)
[2019-04-18 12:40] LABS: ALT (SGPT) 35 U/L (8-55); AST (SGOT) 28 U/L (5-34); Albumin 4.8 g/dL (3.4-4.8); Alkaline Phosphatase 155 U/L (40-110); Anion Gap 14 mmol/L (10-20); BUN (Urea Nitrogen) 9 mg/dL (8.4-25.7); Bilirubin, Total 0.8 mg/dL (0.2-1.2); CK (CPK) 228 U/L (30-200); Calc. Creatinine Clearance 0 mL/min (70-130); Calcium 10.4 mg/dL (7.8-10.44); Carbon Dioxide 29 mmol/L (23-31); Chloride 95 mmol/L (98-107); Estimated GFR-MDRD Greater than 90; Globulin 3.5 g/dL (2.4-3.5); Glucose 100 mg/dL (80-115); Lipase 47 U/L (8-78); Potassium 3.6 mmol/L (3.5-5.1); Protein, Total 8.3 g/dL (5.8-8.1); Sodium 134 mmol/L (136-145)
--- NOTE | 2019-04-18 12:50 | CT ---
CT BRAIN WITHOUT CONTRAST: Date: 04/18/2019 HISTORY: Weakness. Altered mental status. FINDINGS: No evidence of acute infarct, hemorrhage, midline shift, or abnormal extra-axial fluid collections ar e seen. The ventricular size is appropriate and the basilar cisterns are patent. The bony calvarium i s intact. The visualized paranasal sinuses and mastoid air cells are well aerated. IMPRESSION: No CT evidence of acute intracranial process. POS: TPC
--- NOTE | 2019-04-23 15:32 | EKG ---
Test Reason : Blood Pressure : / mmHG Vent. Rate : 090 BPM Atrial Rate : 090 BPM P-R Int : 114 ms QRS Dur : 098 ms QT Int : 360 ms P-R-T Axes : 062 047 064 degrees QTc Int : 440 ms Poor data quality, interpretation may be adversely affected Normal sinus rhythm Incomplete right bundle branch block Borderline ECG Confirmed by SHERIN HAM, SASHA ([id number]), order editor JAIRO DOWNING ([id number]) on 04/23/2019 3:32:04 PM Referred By: Confirmed By:SASHA DUFF MD
== END 2019-04-18 13:07 | disposition home or self-care (01) ==
LOC: ERS 11:30
DX: R53.1 Weakness (principal); R20.2 Paresthesia of skin; J44.9 Chronic obstructive pulmonary disease, unspecified; I10 Essential (primary) hypertension; E78.00 Pure hypercholesterolemia, unspecified; F17.210 Nicotine dependence, cigarettes, uncomplicated; Z79.899 Other long term (current) drug therapy; Z79.82 Long term (current) use of aspirin; Z79.51 Long term (current) use of inhaled steroids
CPT/HCPCS: 70450; 80053; 82140; 82550; 83690; 83880; 84443; 84484; 85025; 93005; 96360

== ENCOUNTER 2019-05-20 14:12 | Outpatient (CLI) | payer OTHER ==
--- NOTE | 2019-05-20 15:48 | ULT ---
ULTRASOUND OF RIGHT PAROTID GLAND: INDICATION: Order states parotid lesion on right. FINDINGS: On the inferior aspect of the right parotid gland, there is a bilobed hypoechoic mass which is measur ed at 1.8 x 1.2 x 1.2 cm. The visualized parotid gland is otherwise unremarkable. The visualized right submandibular gland is unremarkable. IMPRESSION: A bilobed solid mass in the inferior aspect of the right parotid gland. Recommend ENT consultation. Recommend CT neck with contrast if soft tissues of the neck have not been previously evaluated. POS: MITCH
== END 2019-05-20 14:13 | disposition home or self-care (01) ==
LOC: BICULT 14:12
PROVIDERS: ATTEND Family Medicine
DX: K11.8 Other diseases of salivary glands (principal)
CPT/HCPCS: 76999

== ENCOUNTER 2019-09-02 10:45 | Outpatient (CLI) | payer OTHER ==
--- NOTE | 2019-09-02 14:00 | RAD ---
CERVICAL SPINE 3 VIEWS: DATE: 09/02/2019. HISTORY: Preoperative patient, pain. FINDINGS: Anterolisthesis is seen at the C3-4 level and measuring 6 mm. There is straightening of the normal c ervical lordosis. There is prominent degenerative end plate change with disk space narrowing as well as anterior osteophyte formation at C4-5, C5-6, and C6-7. Upon flexion, the anterolisthesis of C3 o n C4 increases to 7 mm. On extension, the anterolisthesis at C3-4 decreases to 3 mm. IMPRESSION: Severe multilevel degenerative change within the cervical spine most prominent at C4-5, C5-6, and C6- 7. There is anterolisthesis at C3-4 which worsens with flexion. POS: ANJANA
== END 2019-09-02 10:46 | disposition home or self-care (01) ==
LOC: TBSIIMAG 10:45
PROVIDERS: ATTEND Neurological Surgery
DX: M48.02 Spinal stenosis, cervical region (principal); R26.81 Unsteadiness on feet; M43.12 Spondylolisthesis, cervical region
CPT/HCPCS: 72040

== ENCOUNTER 2019-09-26 07:02 | Outpatient (CLI) | payer OTHER ==
[2019-09-26 16:24] LABS: Hemoglobin 18.3 g/dL (14.0-18.0); Mean Corpuscular HGB CONC 34.3 g/dL (32.0-36.0); Mean Corpuscular Hemoglobin 32.7 pg (27.0-31.0); Mean Corpuscular Volume 95.2 fL (78.0-98.0); Platelet Count 269 thou/uL (130-400); RBC Distribution Width 12.1 % (11.5-14.5); Red Blood Cell (RBC) Count 5.59 mill/uL (4.70-6.10); White Blood Cell (WBC) Count 9.9 thou/uL (4.8-10.8)
[2019-09-26 16:31] LABS: PTT 33.7 sec (22.9-36.1)
[2019-09-27 13:47] LABS: SARS-CoV-2 MS2 Positive; SARS-CoV-2 N Gene Negative; SARS-CoV-2 S Gene Negative; SARS-CoV-2 orf1ab Negative
== END 2019-09-26 07:03 | disposition home or self-care (01) ==
LOC: LABBT 07:02
PROVIDERS: ATTEND Neurological Surgery
DX: Z01.812 Encounter for preprocedural laboratory examination (principal); Z11.59 Encounter for screening for other viral diseases; M50.121 Cervical disc disorder at C4-C5 level with radiculopathy; M50.021 Cervical disc disorder at C4-C5 level with myelopathy
CPT/HCPCS: 85027; 85610; 85730; 87635; U0003

== ENCOUNTER 2019-09-26 14:30 | Inpatient (IN) | payer OTHER ==
[2019-09-23 12:54] VITALS: BMI 19.3
--- NOTE | 2019-09-26 18:05 | HP ---
Murali is for surgery on 09/30/2019 for C4 through C7 ACDF. HISTORY OF PRESENT ILLNESS: Mr. Vergara is a 64-year-old gentleman, complaining of neck pain. He reports he has been noticing that he has been dropping things more frequently and his balance has become more unsteady. He denies any urinary or bowel dysfunction. REVIEW OF SYSTEMS: CONSTITUTIONAL: Denies fever or chills. HEENT: Denies change in vision or hearing. CARDIAC: Denies chest pain, shortness of breath, or diaphoresis. PULMONARY: Denies shortness of breath, cough, or hemoptysis. GI: Denies abdominal pain, nausea, vomiting, diarrhea, or change in stool formation and consistency. : Denies trouble with urination, frequency of urination, or bloody urine. SKIN: Denies skin rash, bruising, bleeding, or skin masses. MUSCULOSKELETAL: As per history of present illness. NEUROLOGIC: As per history of present illness. PSYCHOLOGIC: Denies anxiety, depression, or behavior changes. MEDICAL HISTORY: 1. High Cholesterol. 2. High blood pressure. 3. Stomach disease. SURGICAL HISTORY: 1. In 2011, colon surgery. 2. In 2018, cholecystectomy. HOSPITALIZATIONS: As above surgeries. FAMILY HISTORY: Father . Mother . Children alive. SOCIAL HISTORY: Tobacco use. Drinks alcohol occasionally. Denies illicit drug use. ALLERGIES: NO KNOWN DRUG ALLERGIES. MEDICATIONS: 1. Atorvastatin. 2. Hydrochlorothiazide. 3. Albuterol. 4. Baby Aspirin 5. Ambien. 6. Flomax. PHYSICAL EXAMINATION: HEENT: Pupils are equal. Extraocular movements are intact. NECK: Soft and supple. No masses are noted. Range of motion is intact, but slightly painful. NEUROLOGIC: Awake, alert, and oriented x3. Memory, attention, and fund of knowledge normal. Cranial nerves grossly intact. Upper extremities, 4/5 strength in the deltoids, biceps, triceps, wrist extensions, finger extensions, and finger intrinsics. Sensory equal bilaterally. Gait and station, [id number] normal, unsteady gait. ASSESSMENT: 1. Spinal stenosis of the cervical region. 2. Cervical herniated nucleus pulposus with myelopathy. 3. Unsteady gait when walking. 4. Spondylosis of the cervical spine especially at C4-C5, C5-C6, and C6-C7. PLAN: 1. ACDF C4-C5, C5-C6, and C6-C7. 2. Preoperative testing: CBC, PT, PTT, COVID-19. 3. Anesthesia and PCP clearance. INFORMED CONSENT: We discussed the indications, risks, benefits, alternatives, and expected results from surgery. The risks discussed included, but were not limited to, bleeding, infection, CSF leak, nerve damage, weakness, swallowing trouble, feeding tube placement, tracheal injury, esophageal injury, vocal cord injury, spinal cord injury, incontinence, paralysis, ventilator dependency, wheelchair dependency, stroke, loss of vision, carotid artery injury, jugular vein injury, hardware misplacement, cardiopulmonary complications of anesthesia or . Long-term complications discussed, discussed included, but were not limited to hardware failure and the degradation of surrounding disk. The patient states that he understand the risks and is willing to proceed. Job ID: [id number] MTDD
[2019-09-30] MEDS ORDERED: Lidocaine 2% Jelly 5 ML TUBE ONE (06:25)
[2019-09-30] MEDS ORDERED: Fentanyl 100 MCG/2 ML VIAL ONE ×3 (06:25→12:58)
[2019-09-30] MEDS ORDERED: Thrombin 5000 UNITS/5 ML VIAL ONE (06:34)
[2019-09-30] MEDS ORDERED: Albuterol Sulfate HFA (OR ONLY) ONE ×2 (06:53→11:03)
[2019-09-30] MEDS ORDERED: Rocuronium Bromide 50 MG/5 ML VIAL ONE (10:38)
[2019-09-30] MEDS ORDERED: Rocuronium Bromide 10 MG/ML (10ML VIAL) ONE (11:03)
[2019-09-30] MEDS ORDERED: Glycopyrrolate 0.2 MG/ML 5 ML SYRINGE ONE (11:03)
[2019-09-30] MEDS ORDERED: EPHEDRINE 25 MG/5 ML SYRINGE ONE (11:03)
[2019-09-30] MEDS ORDERED: Lidocaine 1% PF 5 ML VIAL ONE (11:03)
[2019-09-30] MEDS ORDERED: Esmolol 100 MG/10 ML VIAL ONE (11:03)
[2019-09-30] MEDS ORDERED: PHENYLEPHRINE-NS 100 MCG/ML 10 ML SYRINGE ONE (11:03)
[2019-09-30] MEDS ORDERED: Succinylcholine Chloride 20 MG/ML 10 ml SYRINGE FS ONE (11:03)
[2019-09-30] MEDS ORDERED: Ondansetron PF 4 MG/2 ML Vial ONE (11:03)
[2019-09-30] MEDS ORDERED: PROPOFOL 200 MG/20 ML VIAL ONE (11:03)
[2019-09-30] MEDS ORDERED: Dexamethasone 20 MG/5 ML VIAL ONE (11:03)
[2019-09-30] MEDS ORDERED: Acetaminophen 325 MG TAB PO PRN (12:22)
[2019-09-30] MEDS ORDERED: Mag-Al 1200 mg/1200 mg/30 ML UDCUP PO PRN (12:22)
[2019-09-30] MEDS ORDERED: Scopolamine 1.5 mg/72 hour Patch TD PRN (12:22)
[2019-09-30] MEDS ORDERED: Morphine 2 MG/ML SYRINGE SLOW IVP PRN (12:22)
[2019-09-30] MEDS ORDERED: Tamsulosin HCl 0.4 MG CAP PO PRN (12:22)
[2019-09-30] MEDS ORDERED: traMADol HCl 50 MG TAB PO PRN (12:22)
[2019-09-30] MEDS ORDERED: diphenhydrAMINE 25 MG CAP PO PRN (12:22)
[2019-09-30] MEDS ORDERED: HYDROcodone/Acetaminophen 7.5/325 mg Tablet PO PRN (12:22)
[2019-09-30] MEDS ORDERED: Ondansetron PF 4 MG/2 ML Vial IVP PRN (12:22)
[2019-09-30] MEDS ORDERED: Promethazine 25 MG TAB PO PRN (12:22)
[2019-09-30] MEDS ORDERED: tiZANidine HCl 4 MG TAB PO PRN (12:22)
[2019-09-30] MEDS ORDERED: Sodium Chloride 0.9% 1,000 ML IV SCH (12:30)
[2019-09-30] MEDS ORDERED: Promethazine HCl 25 MG/ML VIAL IM PRN (12:37)
[2019-09-30] MEDS ORDERED: Ondansetron HCl/PF 4 MG/2 ML Vial IVP PRN (12:37)
[2019-09-30] MEDS ORDERED: Promethazine HCl 25 MG/ML VIAL SLOW IVP PRN (12:37)
[2019-09-30] MEDS ORDERED: tiZANidine HCl 4 MG TAB ONE (13:28)
[2019-09-30] MEDS ORDERED: Tamsulosin HCl 0.4 MG CAP ONE (13:29)
[2019-09-30] MEDS ORDERED: Albuterol Sulfate 2.5 mg/3 ml Neb NEB PRN (14:22)
[2019-09-30] MEDS ORDERED: CEFAZOLIN 2 GM in Premix Bag 1 BAG IVPB SCH (15:00)
[2019-09-30] MEDS ORDERED: HYDROcodone/Acetaminophen 5/325 mg Tablet ONE (15:52)
--- NOTE | 2019-09-30 18:16 | OP ---
DATE OF PROCEDURE: 09/30/2019 MANAGER ETL: Jaciel Stoll PA-C. PREOPERATIVE INDICATION: Prevent neurological deterioration. PREOPERATIVE DIAGNOSES: Cervical intervertebral disk disease with cord compression and myelopathy. POSTOPERATIVE DIAGNOSES: Cervical intervertebral disk disease with cord compression and myelopathy. OPERATIVE PROCEDURES: Anterior cervical diskectomy, intervertebral arthrodesis, placement of intervertebral biomechanical device, and anterior cervical plating, C4-C5, C5-C6, and C6-C7; and operating microscope. PREOPERATIVE MEDICATION: Ancef 2 g IV. DRAIN NUMBER: Zero. DRAIN TYPE: None. DESCRIPTION OF PROCEDURE: The patient was brought to the operating room. General endotracheal anesthesia was induced. The patient was positioned supine on the operating table with his head supported by a gel-filled donut-shaped headrest. A lateral fluoro radiograph was used to plan our incision. The neck was sterilely prepped and draped. We opened with a 10 blade knife and we controlled bleeding with bipolar cautery. We dissected sharply to the platysma and we cut this muscle inline with our incision. We continued our dissection medial to the sternocleidomastoid and lateral to the trachea and esophagus. We arrived at the prevertebral space. We placed a marker at C4-C5 and took a lateral fluoro radiograph to confirm the levels upon which we were operating. We then elevated the longus colli muscles off the anterior surface of C4, C5, C6, and C7. A self-retaining retractor was placed at C5 under the longus colli muscles and distraction pins placed at C4 and C6. We distracted across the intervening interspaces. We incised the interspaces with a 15 blade knife and we removed disk contents using curettes and rongeurs. The operative microscope was brought into the field. Under microscopic magnification using microsurgical techniques, we removed the remainder of the intervertebral disk. We accessed the ventral epidural space with a micro curette and we removed posterior longitudinal ligament and posterior osteophytes across the entire interspace from one neural foramen to the other until the was decompression of both the neural foramina as well as the spinal canal. This was completed at C4-C5 and at C5-C6. We turned our attention to arthrodesis. Using curettes, we prepared the endplates for grafting. We measured the height of each interspace to 6 mm. A 6 mm PEEK intervertebral graft was brought into the field. This was loaded with demineralized bone matrix and morselized autograft. The autograft had been prepared by cleaning osteophytes of their soft tissue attachments, morselized in the bone and added it to demineralized bone matrix. This formed our fusion substrate. The substrate was packed in the center of the PEEK grafts and those grafts were advanced into their respective interspaces under radiographic guidance to the appropriate depth. We moved our distraction pin from C4 to C7 and distracted from the C6 to the C7 distraction pin across the C6-C7 interspace. We incised that interspace and removed disk contents using curettes and rongeurs. Similar to what we had done above, we removed posterior osteophytes and posterior longitudinal ligament across the entire interspace from one neural foramen to the other until there was more than adequate decompression of both nerve roots and the spinal canal. We prepared the endplates for grafting. We brought a 6 mm PEEK graft into the field after measuring the height of the interspace. This graft was loaded with demineralized bone matrix and morselized autograft and advanced into this interspace under radiographic guidance to the appropriate depth. We then removed the operating microscope and the distraction pins. A 48 mm anterior cervical plate was brought into the field. We drilled pilot captain holes through the plate into the vertebral bodies at C4, C5, C6, and C7. We affixed the plate using fixed angle screws at C7 and variable angle screws from C4 through C6. We engaged the locking mechanism over each of the eight screws. AP and lateral fluoro radiographs confirmed adequate positioning of our instrumentation. We irrigated with bacitracin irrigation. We closed in anatomical layers and we applied a sterile dressing. This was a clean case, no contamination. Job ID: [id number]
[2019-09-30] MEDS ORDERED: Atorvastatin Calcium 20 MG TAB PO SCH (21:00)
[2019-09-30] MEDS ORDERED: Docusate 100 MG CAP PO SCH (21:00)
[2019-10-01] MEDS ORDERED: Aspirin 81 mg Enteric Coated Tablet PO SCH (09:00)
[2019-10-01] MEDS ORDERED: Hydrochlorothiazide 25 MG TAB PO SCH (09:00)
--- NOTE | 2019-10-03 13:25 | DIS ---
DATE OF ADMISSION: 09/30/2019 DATE OF DISCHARGE: 09/30/2019 HOSPITAL COURSE: Mr. Vergara is a 64-year-old gentleman who underwent C4 through C7 ACDF. Following surgery, he was transitioned to the med-surg floor, where his pain has been well controlled with p.o. medications. He is voiding appropriately. He is ambulating with assistance. He is otherwise doing well and feels that he is ready to go home today. PHYSICAL EXAMINATION: He was awake, alert, in no acute distress. He has free active range of motion in his extremities. No focal motor weakness. No reflex asymmetry. His incision is clean, dry, and intact. PLAN: We will plan to dismiss the patient home same day. I discussed home care precautions with Mr. Vergara. CONDITION ON DISCHARGE: The patient has no emergencies. Condition was stable for discharge. MEDICATIONS: Home going medications were reviewed. FOLLOWUP: Follow up arrangements made by our branch coordinator in the clinic and call to the patient. ACTIVITIES: Restrictions were reviewed in person. Wound care showers are acceptable. The patient should pat the incision dry, but not submerge it under the surface of the body of water for 2 months. Job ID: [id number]
== END 2019-09-30 16:30 | disposition home or self-care (01) | DRG 472 ==
LOC: SURG A 09-30 05:32
PROVIDERS: ADMIT Neurological Surgery; ATTEND Neurological Surgery
PROC: 0RG20A0 Fusion of 2 or more Cervical Vertebral Joints with Interbody Fusion Device, Anterior Approach, Anterior Column, Open Approach (ICD-10-PCS; principal; 2019-09-30)
PROC: 0RB30ZZ Excision of Cervical Vertebral Disc, Open Approach (ICD-10-PCS; 2019-09-30)
DX: M48.02 Spinal stenosis, cervical region (principal); M47.12 Other spondylosis with myelopathy, cervical region; M50.020 Cervical disc disorder with myelopathy, mid-cervical region, unspecified level; E78.00 Pure hypercholesterolemia, unspecified; I10 Essential (primary) hypertension; E78.5 Hyperlipidemia, unspecified; J43.9 Emphysema, unspecified; F10.10 Alcohol abuse, uncomplicated; Z90.49 Acquired absence of other specified parts of digestive tract; Z79.82 Long term (current) use of aspirin; Z79.51 Long term (current) use of inhaled steroids; Z79.899 Other long term (current) drug therapy; Z85.828 Personal history of other malignant neoplasm of skin
CPT/HCPCS: 76000; 93005; 93010; C1713; C1776; J0690; J1100; J2001; J2405; J2704; J3010; J3490

== ENCOUNTER 2019-11-04 10:49 | Outpatient (CLI) | payer OTHER ==
--- NOTE | 2019-11-04 11:13 | RAD ---
RADIOGRAPH CERVICAL SPINE 3 VIEWS: DATE: 11/04/2019 HISTORY: 64-year-old male with "M 50.00 cervical HNP herniated nucleus pulposus with myelopathy" status post r ecent surgery. COMPARISON: 09/02/2019 FINDINGS: There continues to be grade 1 anterolisthesis of C3 on C4. Mild disc space narrowing at C3-4. There is ACDF hardware at C4, C5, C6, and C7. In addition to the plate and screws, there are small me tallic markers for interbody cages in the C4-5, C5-6, and C6-disc spaces, with significant interval improvement in the severe disc space narrowing demonstrated previously, with interval resection of en dplate marginal osteophytes. New minimal prevertebral soft tissue swelling, as expected. Incomplete visualization of moderate degenerative disc disease at C7-T1.. IMPRESSION: 1) interval status post anterior cervical discectomy and fusion at C4-5-6-7. 2) grade 1 spondylolisthesis at C4-5 is unchanged. 3) moderate degenerative disc disease at C7-T1 remains.
== END 2019-11-04 10:50 | disposition home or self-care (01) ==
LOC: TBSIIMAG 10:49
PROVIDERS: ATTEND Neurological Surgery
DX: M50.00 Cervical disc disorder with myelopathy, unspecified cervical region (principal); M50.03 Cervical disc disorder with myelopathy, cervicothoracic region; M43.12 Spondylolisthesis, cervical region; Z98.1 Arthrodesis status
CPT/HCPCS: 72040

== ENCOUNTER 2021-01-28 10:57 | Inpatient (IN) | payer BC, OTHER ==
[~2021-01-28 10:57] MED LIST: Iopamidol-370 76% 500 ML 1 ML ONE; Lorazepam 1 MG TAB PO PRN
[2021-01-28] MEDS ORDERED: Morphine 4 MG/ML VIAL ONE (13:28)
[2021-01-28 14:01] LABS: Bilirubin Negative (Negative); Blood, Urine Trace (Negative); Clarity Clear (Clear); Glucose, Urine (Dipstick) Normal (Negative); Ketone, Urine Negative (Negative); Leukocyte Negative Leu/uL (Negative); Nitrite Negative (Negative); Protein, Urine (Dipstick) 70 mg/dL (Neg-Trace); RBC/HPF 0-3 HPF (0-3); Specific Gravity, Urine 1.017 (1.002-1.036); Squamous Epithelial 0-3 HPF (0-3); Urobilinogen Normal mg/dL (Less than 2); WBC/HPF 0-3 HPF (0-3); pH, Urine 6.5 (5.0-9.0)
[2021-01-28 14:03] LABS: Bacteria/HPF 1+ HPF (None Seen)
[2021-01-28 14:15] LABS: #Eosinphils 0.1 thou/uL (0.0-0.7); #Lymphocytes 0.9 thou/uL (1.20-3.40); #Monocytes 0.7 thou/uL (0.11-0.59); #Neutrophils 10.4 thou/uL (1.40-6.50); %Basophils 0.3 % (0.0-1.0); %Eosinophils 0.5 % (0.0-10.0); %Lymphocytes 7.2 % (21.0-51.0); %Monocytes 5.7 % (0.0-10.0); %Neutrophils 86.3 % (42.0-75.0); Hemoglobin 20.2 g/dL (14.0-18.0); Mean Corpuscular HGB CONC 34.9 g/dL (32.0-36.0); Mean Corpuscular Hemoglobin 33.2 pg (27.0-31.0); Mean Corpuscular Volume 95.3 fL (78.0-98.0); Mean Platelet Volume 6.7 fL (7.4-10.4); Platelet Count 229 thou/uL (130-400); RBC Distribution Width 12.3 % (11.5-14.5); Red Blood Cell (RBC) Count 6.08 mill/uL (4.70-6.10); White Blood Cell (WBC) Count 12.1 thou/uL (4.8-10.8)
[2021-01-28 14:44] LABS: ALT (SGPT) 31 U/L (8-55); AST (SGOT) 25 U/L (5-34); Albumin 4.6 g/dL (3.4-4.8); Alkaline Phosphatase 128 U/L (40-110); Anion Gap 19 mmol/L (10-20); BUN (Urea Nitrogen) 17 mg/dL (8.4-25.7); Bilirubin, Total 1.4 mg/dL (0.2-1.2); Calc. Creatinine Clearance 0 mL/min (70-130); Calcium 10.4 mg/dL (7.8-10.44); Carbon Dioxide 25 mmol/L (23-31); Chloride 93 mmol/L (98-107); Globulin 3.5 g/dL (2.4-3.5); Glucose 144 mg/dL (80-115); Lipase 13 U/L (8-78); Potassium 4.4 mmol/L (3.5-5.1); Protein, Total 8.1 g/dL (5.8-8.1); Sodium 133 mmol/L (136-145)
[2021-01-28] MEDS ORDERED: Ondansetron PF 4 MG/2 ML Vial IVP PRN (16:16)
[2021-01-28] MEDS ORDERED: Albuterol Sulfate 2.5 mg/3 ml Neb NEB PRN (16:19)
[2021-01-28] MEDS ORDERED: Sodium Chloride 0.9% 1,000 ML IV SCH (16:30)
[2021-01-28] MEDS ORDERED: Lidocaine Viscous Sol 2% 15 ml UD Cup ONE (16:44)
[2021-01-28] MEDS ORDERED: Benzocaine 20% Spray 60 ML CAN ONE (16:44)
[2021-01-28 17:25] LABS: SARS-CoV-2 NAA Rapid Test Not Detected (NotDetected)
[2021-01-28] MEDS: Morphine 4 MG/ML VIAL SLOW IVP PRN ×2 (20:04→22:44)
[2021-01-28 20:19] VITALS: BMI 17.9
[2021-01-28] MEDS: Sodium Chloride 0.9% 1,000 ML IV SCH (21:23)
[2021-01-28] MEDS: Enoxaparin Sodium 40 MG/0.4 ML SYRINGE SC SCH (21:24)
[2021-01-28] MEDS ORDERED: Electrolyte Replacement Protocol 1 EACH FS PRN (21:45)
[2021-01-28] MEDS ORDERED: Ondansetron ODT 4 MG TAB PO PRN (21:45)
[2021-01-28] MEDS ORDERED: Lorazepam 2 MG/ML VIAL IM PRN (21:45)
[2021-01-28] MEDS: Lorazepam 1 MG TAB PO SCH (22:34)
[2021-01-28] MEDS: Thiamine HCl 200 MG/2 ML VIAL SLOW IVP SCH (23:43)
[2021-01-29] MEDS: Lorazepam 1 MG TAB PO SCH ×4 (00:12→21:59)
[2021-01-29 05:03] LABS: #Eosinphils 0.1 thou/uL (0.0-0.7); #Lymphocytes 1.3 thou/uL (1.20-3.40); #Monocytes 0.8 thou/uL (0.11-0.59); #Neutrophils 4.9 thou/uL (1.40-6.50); %Basophils 0.2 % (0.0-1.0); %Eosinophils 1.2 % (0.0-10.0); %Lymphocytes 18.2 % (21.0-51.0); %Monocytes 11.9 % (0.0-10.0); %Neutrophils 68.6 % (42.0-75.0); Hemoglobin 16.6 g/dL (14.0-18.0); Mean Corpuscular HGB CONC 32.9 g/dL (32.0-36.0); Mean Corpuscular Hemoglobin 31.7 pg (27.0-31.0); Mean Corpuscular Volume 96.3 fL (78.0-98.0); Mean Platelet Volume 7.2 fL (7.4-10.4); Platelet Count 190 thou/uL (130-400); RBC Distribution Width 12.4 % (11.5-14.5); Red Blood Cell (RBC) Count 5.23 mill/uL (4.70-6.10); White Blood Cell (WBC) Count 7.1 thou/uL (4.8-10.8)
[2021-01-29 05:05] LABS: ALT (SGPT) 20 U/L (8-55); AST (SGOT) 18 U/L (5-34); Albumin 3.5 g/dL (3.4-4.8); Alkaline Phosphatase 86 U/L (40-110); Anion Gap 10 mmol/L (10-20); BUN (Urea Nitrogen) 12 mg/dL (8.4-25.7); Bilirubin, Total 1.4 mg/dL (0.2-1.2); Calc. Creatinine Clearance 88 mL/min (70-130); Calcium 8.9 mg/dL (7.8-10.44); Carbon Dioxide 26 mmol/L (23-31); Chloride 103 mmol/L (98-107); Globulin 2.5 g/dL (2.4-3.5); Glucose 96 mg/dL (80-115); Potassium 4.3 mmol/L (3.5-5.1); Sodium 135 mmol/L (136-145)
[2021-01-29] MEDS: Sodium Chloride 0.9% 1,000 ML IV SCH ×5 (05:19→23:52)
[2021-01-29] MEDS: Pantoprazole 40 MG VIAL IVP SCH (08:32)
[2021-01-29] MEDS: Morphine 4 MG/ML VIAL SLOW IVP PRN ×3 (09:31→14:10)
[2021-01-29] MEDS ORDERED: MD-Gastroview 120 ML BOT ONE (09:52)
[2021-01-29] MEDS: Folic Acid 1 MG TAB PO SCH (10:06)
[2021-01-29] MEDS: Multivit, Therapeutic 1 TAB PO SCH (10:06)
[2021-01-29] MEDS: hydrALAZINE 20 MG/ML VIAL SLOW IVP PRN (13:46)
[2021-01-29] MEDS ORDERED: Metoprolol Tartrate 5 MG/5 ML VIAL IVP SCH (15:30)
[2021-01-29] MEDS ORDERED: Ondansetron PF 4 MG/2 ML Vial ONE ×2 (16:23→17:16)
[2021-01-29] MEDS ORDERED: Piperacillin/Tazobactam 3.375 GM in Sodium Chloride 0.9% 100 ML IVPB SCH (16:30)
[2021-01-29] MEDS ORDERED: Promethazine HCl 25 MG/ML VIAL IVPB PRN ×2 (16:37→18:53)
[2021-01-29] MEDS ORDERED: Promethazine HCl 25 MG/ML VIAL IM PRN ×3 (16:37→18:53)
[2021-01-29] MEDS ORDERED: HYDROmorphone 2 MG/ML VIAL SLOW IVP PRN (16:37)
[2021-01-29] MEDS ORDERED: Ondansetron HCl/PF 4 MG/2 ML Vial IVP PRN ×2 (16:37→18:53)
[2021-01-29] MEDS ORDERED: Fentanyl 250 MCG/5 ML VIAL ONE (16:46)
[2021-01-29] MEDS ORDERED: Piperacillin/Tazobactam 3.375 GM VIAL ONE (17:07)
[2021-01-29] MEDS ORDERED: Sodium Chloride 0.9% 100 ML ONE (17:08)
[2021-01-29] MEDS ORDERED: Dexamethasone 20 MG/5 ML VIAL ONE (17:16)
[2021-01-29] MEDS ORDERED: Rocuronium Bromide 10 MG/ML (10ML VIAL) ONE (17:16)
[2021-01-29] MEDS ORDERED: PROPOFOL 200 MG/20 ML VIAL ONE (17:16)
[2021-01-29] MEDS ORDERED: Succinylcholine 200 MG/10 ml SYRINGE FS ONE (17:16)
[2021-01-29] MEDS ORDERED: Lidocaine 1% PF 5 ML VIAL ONE (17:16)
[2021-01-29] MEDS ORDERED: SUGAMMADEX SODIUM 200 MG/2 ML VIAL ONE (18:24)
[2021-01-29] MEDS ORDERED: Ondansetron PF 4 MG/2 ML Vial IVP PRN (18:53)
[2021-01-29] MEDS ORDERED: Naloxone HCl 0.4 mg/ml Vial IV PRN (18:53)
[2021-01-29] MEDS ORDERED: diphenhydrAMINE 50 MG/ML VIAL IVP PRN (18:53)
[2021-01-29] MEDS ORDERED: diphenhydrAMINE 25 MG CAP PO PRN (18:53)
[2021-01-29] MEDS ORDERED: Zolpidem Tartrate 5 MG TAB PO PRN (18:53)
[2021-01-29] MEDS ORDERED: diphenhydrAMINE 50 MG/ML VIAL IM PRN (18:53)
[2021-01-29] MEDS ORDERED: Communication Order-Pharmacy FS SCH (19:00)
[2021-01-29] MEDS ORDERED: Labetalol HCl 100 MG/20 ML VIAL ONE (19:00)
[2021-01-29] MEDS ORDERED: Labetalol HCl 100 MG/20 ML VIAL SLOW IVP PRN (19:09)
[2021-01-29] MEDS ORDERED: Fentanyl 100 MCG/2 ML VIAL ONE (19:23)
[2021-01-29] MEDS: Enoxaparin Sodium 40 MG/0.4 ML SYRINGE SC SCH (20:42)
[2021-01-29] MEDS: Ipratropium Bromide 2.5 ml Neb NEB SCH ×2 (21:42→23:09)
[2021-01-29] MEDS ORDERED: Lorazepam 1 MG TAB PO PRN (21:45)
[2021-01-29] MEDS: Thiamine HCl 200 MG/2 ML VIAL SLOW IVP SCH (22:03)
[2021-01-30] MEDS ORDERED: Lorazepam 0.5 MG TAB PO SCH (06:00)
[2021-01-30 08:38] LABS: ALT (SGPT) 20 U/L (8-55); AST (SGOT) 21 U/L (5-34); Albumin 3.7 g/dL (3.4-4.8); Alkaline Phosphatase 78 U/L (40-110); Anion Gap 11 mmol/L (10-20); BUN (Urea Nitrogen) 13 mg/dL (8.4-25.7); Bilirubin, Total 1.2 mg/dL (0.2-1.2); Calc. Creatinine Clearance 85 mL/min (70-130); Calcium 9.1 mg/dL (7.8-10.44); Carbon Dioxide 29 mmol/L (23-31); Chloride 108 mmol/L (98-107); Globulin 2.7 g/dL (2.4-3.5); Glucose 115 mg/dL (80-115); Potassium 4.2 mmol/L (3.5-5.1); Protein, Total 6.4 g/dL (5.8-8.1); Sodium 144 mmol/L (136-145)
[2021-01-30 09:11] LABS: Band 33 % (5-11); Eosinophils 1 % (0-10); Hemoglobin 16.9 g/dL (14.0-18.0); Lymphocytes 17 % (21-51); MDiff Complete? YES; Mean Corpuscular Hemoglobin 32.5 pg (27.0-31.0); Mean Corpuscular Volume 98.2 fL (78.0-98.0); Monocytes 4 % (0-10); Neutrophil 36 % (42-75); Platelet Count 183 thou/uL (130-400); Platelet Morphology Comment Appears Adequate; RBC Distribution Width 12.4 % (11.5-14.5); RBC Morphology Normal; Reactive Lymphocytes 9 % (0-10); Red Blood Cell (RBC) Count 5.21 mill/uL (4.70-6.10); White Blood Cell (WBC) Count 8.4 thou/uL (4.8-10.8)
[2021-01-30] MEDS: Pantoprazole 40 MG VIAL IVP SCH (09:34)
[2021-01-30] MEDS: Multivit, Therapeutic 1 TAB PO SCH (09:34)
[2021-01-30] MEDS: Folic Acid 1 MG TAB PO SCH (09:34)
[2021-01-30] MEDS: Sodium Chloride 0.9% 1,000 ML IV SCH ×3 (09:39→17:16)
[2021-01-30] MEDS: Ipratropium Bromide 2.5 ml Neb NEB SCH ×3 (10:35→18:56)
[2021-01-30] MEDS: fentaNYL Citrate/PF 2,000 MCG in Sodium Chloride 0.9% 60 ML IV PRN (19:37)
[2021-01-30] MEDS: Enoxaparin Sodium 40 MG/0.4 ML SYRINGE SC SCH (21:21)
[2021-01-30] MEDS: Thiamine HCl 200 MG/2 ML VIAL SLOW IVP SCH (21:22)
[2021-01-30] MEDS ORDERED: Lorazepam 1 MG TAB PO PRN (21:45)
[2021-01-31] MEDS: Sodium Chloride 0.9% 1,000 ML IV SCH ×4 (00:32→20:21)
[2021-01-31] MEDS: Ipratropium Bromide 2.5 ml Neb NEB SCH ×4 (00:44→18:20)
[2021-01-31] MEDS ORDERED: Lorazepam 0.5 MG TAB PO PRN (06:00)
[2021-01-31] MEDS: Folic Acid 1 MG TAB PO SCH (09:14)
[2021-01-31] MEDS: Pantoprazole 40 MG VIAL IVP SCH (09:14)
[2021-01-31] MEDS: Thiamine 100 MG TAB PO SCH (09:14)
[2021-01-31] MEDS: Multivit, Therapeutic 1 TAB PO SCH (09:14)
[2021-01-31] MEDS: hydrALAZINE 20 MG/ML VIAL SLOW IVP PRN (13:01)
[2021-01-31] MEDS: Lorazepam 2 MG/ML VIAL SLOW IVP PRN (14:24)
[2021-01-31] MEDS: Enoxaparin Sodium 40 MG/0.4 ML SYRINGE SC SCH (20:20)
[2021-02-01] MEDS: Ipratropium Bromide 2.5 ml Neb NEB SCH ×4 (00:50→18:20)
[2021-02-01] MEDS: fentaNYL Citrate/PF 2,000 MCG in Sodium Chloride 0.9% 60 ML IV PRN (01:57)
[2021-02-01] MEDS: Sodium Chloride 0.9% 1,000 ML IV SCH (06:35)
[2021-02-01] MEDS: Multivit, Therapeutic 1 TAB PO SCH (09:46)
[2021-02-01] MEDS: Folic Acid 1 MG TAB PO SCH (09:46)
[2021-02-01] MEDS: Thiamine 100 MG TAB PO SCH (09:46)
[2021-02-01] MEDS: Pantoprazole 40 MG VIAL IVP SCH (09:48)
[2021-02-01] MEDS: Lorazepam 2 MG/ML VIAL SLOW IVP PRN (11:05)
[2021-02-01] MEDS ORDERED: Amino Acids 4.25 %/Dextrose 5% 2,000 ML BAG IV SCH (16:00)
[2021-02-01] MEDS: Lactated Ringer's 1,000 ML IV SCH (17:20)
[2021-02-01] MEDS: AMINO ACIDS IV SCH (21:20)
[2021-02-01] MEDS: DEXTROSE 5% IV SCH (21:20)
[2021-02-01] MEDS: ADMIXTURE FEE IV SCH (21:20)
[2021-02-01] MEDS: Enoxaparin Sodium 40 MG/0.4 ML SYRINGE SC SCH (21:20)
[2021-02-01] MEDS: Acetaminophen 325 MG TAB PO PRN (23:30)
[2021-02-02] MEDS: Lactated Ringer's 1,000 ML IV SCH ×3 (01:08→20:11)
[2021-02-02] MEDS: Ipratropium Bromide 2.5 ml Neb NEB SCH ×4 (01:47→18:57)
[2021-02-02] MEDS: Acetaminophen 325 MG TAB PO PRN (04:23)
[2021-02-02 05:12] LABS: #Eosinphils 0.2 thou/uL (0.0-0.7); #Lymphocytes 1.4 thou/uL (1.20-3.40); #Monocytes 0.7 thou/uL (0.11-0.59); %Basophils 0.4 % (0.0-1.0); %Eosinophils 2.9 % (0.0-10.0); %Lymphocytes 18.8 % (21.0-51.0); %Monocytes 9.3 % (0.0-10.0); %Neutrophils 68.5 % (42.0-75.0); Hemoglobin 16.1 g/dL (14.0-18.0); Mean Corpuscular HGB CONC 34.4 g/dL (32.0-36.0); Mean Corpuscular Hemoglobin 33.4 pg (27.0-31.0); Mean Corpuscular Volume 97.2 fL (78.0-98.0); Mean Platelet Volume 6.7 fL (7.4-10.4); Platelet Count 145 thou/uL (130-400); Red Blood Cell (RBC) Count 4.81 mill/uL (4.70-6.10); White Blood Cell (WBC) Count 7.3 thou/uL (4.8-10.8)
[2021-02-02 05:36] LABS: ALT (SGPT) 14 U/L (8-55); AST (SGOT) 18 U/L (5-34); Albumin 2.9 g/dL (3.4-4.8); Alkaline Phosphatase 56 U/L (40-110); Anion Gap 10 mmol/L (10-20); BUN (Urea Nitrogen) 10 mg/dL (8.4-25.7); Calc. Creatinine Clearance 105 mL/min (70-130); Calcium 8.2 mg/dL (7.8-10.44); Carbon Dioxide 27 mmol/L (23-31); Chloride 99 mmol/L (98-107); Globulin 2.2 g/dL (2.4-3.5); Glucose 96 mg/dL (80-115); Magnesium 1.7 mg/dL (1.6-2.6); Phosphorus 2.2 mg/dL (2.3-4.7); Protein, Total 5.1 g/dL (5.8-8.1); Sodium 133 mmol/L (136-145)
[2021-02-02 05:41] LABS: Potassium 2.8 mmol/L (3.5-5.1)
[2021-02-02] MEDS: fentaNYL Citrate/PF 2,000 MCG in Sodium Chloride 0.9% 60 ML IV PRN (06:38)
[2021-02-02] MEDS: Potassium Chloride 40 MEQ in Sodium Chloride 0.9% 250 ML 250 ML IVPB SCH ×2 (08:27→14:26)
[2021-02-02] MEDS: ADMIXTURE FEE IV SCH ×2 (08:28→20:12)
[2021-02-02] MEDS: DEXTROSE 5% IV SCH ×2 (08:28→20:12)
[2021-02-02] MEDS: AMINO ACIDS IV SCH ×2 (08:28→20:12)
[2021-02-02 08:29] LABS: Potassium 3.1 mmol/L (3.5-5.1)
[2021-02-02] MEDS: Pantoprazole 40 MG VIAL IVP SCH (08:31)
[2021-02-02] MEDS: Folic Acid 1 MG TAB PO SCH (08:31)
[2021-02-02] MEDS: Thiamine 100 MG TAB PO SCH (08:31)
[2021-02-02] MEDS: Multivit, Therapeutic 1 TAB PO SCH (08:32)
[2021-02-02] MEDS: Lisinopril 10 MG TAB PO SCH (08:32)
[2021-02-02] MEDS ORDERED: Magnesium 2 GM/50 ML 2 GM in Premix Bag 1 BAG IVPB SCH (09:00)
[2021-02-02] MEDS: Lorazepam 2 MG/ML VIAL SLOW IVP PRN (14:56)
[2021-02-02 18:22] LABS: Potassium 3.3 mmol/L (3.5-5.1)
[2021-02-02] MEDS: Enoxaparin Sodium 30 MG/0.3 ML SYRINGE SC SCH (21:29)
[2021-02-02] MEDS ORDERED: Potassium Chloride 40 MEQ in Sodium Chloride 0.9% 250 ML 250 ML IVPB SCH (23:59)
[2021-02-03] MEDS: Ipratropium Bromide 2.5 ml Neb NEB SCH ×4 (02:09→19:41)
[2021-02-03] MEDS: Lactated Ringer's 1,000 ML IV SCH ×3 (05:09→19:29)
[2021-02-03 07:20] LABS: Potassium 3.9 mmol/L (3.5-5.1)
[2021-02-03] MEDS: Multivit, Therapeutic 1 TAB PO SCH (08:11)
[2021-02-03] MEDS: AMINO ACIDS IV SCH ×2 (08:11→20:57)
[2021-02-03] MEDS: Folic Acid 1 MG TAB PO SCH (08:11)
[2021-02-03] MEDS: DEXTROSE 5% IV SCH ×2 (08:11→20:57)
[2021-02-03] MEDS: Thiamine 100 MG TAB PO SCH (08:11)
[2021-02-03] MEDS: Lisinopril 10 MG TAB PO SCH (08:11)
[2021-02-03] MEDS: Pantoprazole 40 MG VIAL IVP SCH (08:11)
[2021-02-03] MEDS: ADMIXTURE FEE IV SCH ×2 (08:11→20:57)
[2021-02-03] MEDS ORDERED: Morphine 4 MG/ML VIAL SLOW IVP PRN (20:54)
[2021-02-03] MEDS: Enoxaparin Sodium 30 MG/0.3 ML SYRINGE SC SCH (20:57)
[2021-02-04] MEDS: Ipratropium Bromide 2.5 ml Neb NEB SCH ×4 (01:23→19:28)
[2021-02-04] MEDS: Lorazepam 2 MG/ML VIAL SLOW IVP PRN (02:02)
[2021-02-04] MEDS: Lactated Ringer's 1,000 ML IV SCH ×2 (05:27→15:42)
[2021-02-04] MEDS: DEXTROSE 5% IV SCH ×2 (08:39→08:41)
[2021-02-04] MEDS: ADMIXTURE FEE IV SCH ×2 (08:39→08:41)
[2021-02-04] MEDS: AMINO ACIDS IV SCH ×2 (08:39→08:41)
[2021-02-04] MEDS: Folic Acid 1 MG TAB PO SCH (08:40)
[2021-02-04] MEDS: Lisinopril 10 MG TAB PO SCH (08:40)
[2021-02-04] MEDS: Multivit, Therapeutic 1 TAB PO SCH (08:40)
[2021-02-04] MEDS: Thiamine 100 MG TAB PO SCH (08:40)
[2021-02-04] MEDS: Pantoprazole 40 MG VIAL IVP SCH (08:40)
[2021-02-04] MEDS ORDERED: Ibuprofen 600 MG TAB PO PRN (13:55)
[2021-02-04] MEDS ORDERED: Acetaminophen 500 MG TAB PO PRN (13:55)
[2021-02-04] MEDS ORDERED: traMADol HCl 50 MG TAB PO PRN (13:55)
[2021-02-04] MEDS: Enoxaparin Sodium 30 MG/0.3 ML SYRINGE SC SCH (21:32)
[2021-02-05 00:09] LABS: SARS-CoV-2 PCR by NAA Not Detected (NotDetected)
[2021-02-05] MEDS: Lorazepam 2 MG/ML VIAL SLOW IVP PRN (00:18)
[2021-02-05] MEDS: Ipratropium Bromide 2.5 ml Neb NEB SCH ×2 (01:58→06:10)
[2021-02-05] MEDS: Lisinopril 10 MG TAB PO SCH (07:43)
[2021-02-05] MEDS: Multivit, Therapeutic 1 TAB PO SCH (07:44)
[2021-02-05] MEDS: Folic Acid 1 MG TAB PO SCH (07:44)
[2021-02-05] MEDS: Thiamine 100 MG TAB PO SCH (07:44)
[2021-02-05 08:01] VITALS: TEMP 98.3
[2021-02-05] MEDS ORDERED: Polyethylene Glycol 3350 17 GM Packet PO SCH (09:00)
[2021-02-05 11:53] VITALS: BP 119/88
== END 2021-02-05 11:35 | disposition home or self-care (01) | DRG 336 ==
LOC: ERS 10:57 → ONC 15:58
PROVIDERS: ADMIT Specialist; ATTEND Specialist
PROC: 0DN80ZZ Release Small Intestine, Open Approach (ICD-10-PCS; principal; 2021-01-29)
PROC: 3E0M05Z Introduction of Adhesion Barrier into Peritoneal Cavity, Open Approach (ICD-10-PCS; 2021-01-29)
DX: K56.52 Intestinal adhesions [bands] with complete obstruction (principal); E44.0 Moderate protein-calorie malnutrition; Z68.1 Body mass index [BMI] 19.9 or less, adult; F17.210 Nicotine dependence, cigarettes, uncomplicated; E86.0 Dehydration; Z20.822 Contact with and (suspected) exposure to COVID-19; J44.9 Chronic obstructive pulmonary disease, unspecified; K56.7 Ileus, unspecified; Z93.3 Colostomy status; Z79.82 Long term (current) use of aspirin; Z98.890 Other specified postprocedural states
CPT/HCPCS: 36415; 74018; 74022; 74177; 74250; 80053; 81003; 81015; 83605; 83690; 83735; 84100; 84132; 85025; 93005; 96374; C9113; J0360; J1100; J1650; J2060; J2270; J2405; J2543; J2704; J3010; J3411; J3475; J3480; J3490; J7050; J7120; J7620; Q9963; Q9967; U0002; U0003; U0005

== ENCOUNTER 2021-09-09 10:28 | Outpatient (CLI) | payer BC | END 2021-09-09 10:29 | disposition home or self-care (01) | LOC: BICRAD 10:28 | PROVIDERS: ATTEND Neurological Surgery | DX: M47.26 Other spondylosis with radiculopathy, lumbar region (principal) | CPT/HCPCS: 72110 ==

== ENCOUNTER 2022-03-23 11:01 | Inpatient (IN) | payer BC, MEDICARE ==
[2022-03-23] MEDS ORDERED: methylPREDNISolone Sod Succ/PF 125 MG/2 ML VIAL ONE (11:17)
[2022-03-23] MEDS ORDERED: Magnesium 2 GM/50 ML BAG (IN WATER) ONE (11:18)
[2022-03-23] MEDS ORDERED: Cefepime 2 GM VIAL ONE (11:18)
[2022-03-23] MEDS ORDERED: Albuterol Sulfate 2.5 mg/0.5 ml Neb ONE (11:35)
[2022-03-23 11:57] LABS: Hemoglobin 17.1 g/dL (14.0-18.0); Mean Corpuscular HGB CONC 34.1 g/dL (32.0-36.0); Mean Corpuscular Hemoglobin 33.4 pg (27.0-31.0); Mean Corpuscular Volume 98.1 fl (78.0-98.0); Mean Platelet Volume 7.2 fL (7.4-10.4); Platelet Count 147 10x3/uL (130-400); RBC Distribution Width 12.4 % (11.5-14.5); Red Blood Cell (RBC) Count 5.11 mill/uL (4.70-6.10); White Blood Cell (WBC) Count 16.7 10x3/uL (4.8-10.8)
[2022-03-23 12:16] LABS: ALT (SGPT) 27 U/L (8-55); AST (SGOT) 25 U/L (5-34); Albumin 3.6 g/dL (3.4-4.8); Alkaline Phosphatase 89 U/L (40-110); Anion Gap 16 mmol/L (10-20); BUN (Urea Nitrogen) 32 mg/dL (8.4-25.7); Bilirubin, Total 1.6 mg/dL (0.2-1.2); CK (CPK) 97 U/L (30-200); Calc. Creatinine Clearance 0 mL/min (70-130); Calcium 9.3 mg/dL (7.8-10.44); Carbon Dioxide 23 mmol/L (23-31); Chloride 87 mmol/L (98-107); Estimated GFR 65; Glucose 111 mg/dL (80-115); Lipase 9 U/L (8-78); Magnesium 1.7 mg/dL (1.6-2.6); Potassium 4.1 mmol/L (3.5-5.1); Protein, Total 6.6 g/dL (5.8-8.1); Sodium 122 mmol/L (136-145)
[2022-03-23 12:24] LABS: Band 31 % (5-11); Lymphocytes 3 % (21-51); MDiff Complete? YES; Monocytes 5 % (0-10); Neutrophil 59 % (42-75); Platelet Morphology Comment Appears Adequate; RBC Morphology Normal; Reactive Lymphocytes 2 % (0-10)
[2022-03-23 12:30] LABS: Clarity Hazy (Clear); Glucose, Urine (Dipstick) Unable to Interpret mg/dL (Negative); Leukocyte Unable to Interpret Leu/uL (Negative); Nitrite Unable to Interpret (Negative); Protein, Urine (Dipstick) Unable to Interpret mg/dL (Neg-Trace); Specific Gravity, Urine 1.011 (1.002-1.036); pH, Urine 5.9 (5.0-9.0)
[2022-03-23 12:31] LABS: Bilirubin Unable to Interpret (Negative); Blood, Urine Unable to Interpret (Negative); Ketone, Urine Unable to Interpret mg/dL (Negative); Urobilinogen UNABLE TO INTERPRET mg/dL (Less than 2)
[2022-03-23 12:33] LABS: Bacteria/HPF 3+ HPF (None Seen); Renal Epithelial 0-3 HPF (None Seen); Squamous Epithelial 0-3 HPF (0-3); Transitional Epithelial 0-3 HPF (None Seen); WBC/HPF 21-50 HPF (0-3)
[2022-03-23] MEDS ORDERED: Vancomycin 1 GM/200 ML (FROZEN) BAG ONE (12:40)
[2022-03-23] MEDS ORDERED: Ondansetron ODT 4 MG TAB PO PRN (13:58)
[2022-03-23] MEDS ORDERED: LORazepam 2 MG/ML SYR.(CARPUJECT) ONE (13:59)
[2022-03-23] MEDS ORDERED: Acetaminophen 500 MG TAB ONE (14:17)
[2022-03-23] MEDS ORDERED: Lorazepam 2 MG/ML VIAL IM PRN (14:39)
[2022-03-23] MEDS ORDERED: Lorazepam 1 MG TAB PO PRN (14:39)
[2022-03-23] MEDS ORDERED: Multivit, Therapeutic 1 TAB PO SCH (14:45)
[2022-03-23] MEDS ORDERED: Folic Acid 1 MG TAB PO SCH (14:45)
[2022-03-23] MEDS ORDERED: Ibuprofen 800 MG TAB PO SCH (14:45)
[2022-03-23] MEDS ORDERED: Thiamine 100 MG TAB PO SCH (14:45)
[2022-03-23] MEDS ORDERED: Ibuprofen 100 MG/5 ML UDCUP PO SCH (14:45)
[2022-03-23] MEDS ORDERED: Ibuprofen 800 MG TAB PO PRN (14:53)
[2022-03-23] MEDS ORDERED: Iopamidol-370 76% 500 ML 1 ML ONE (15:15)
[2022-03-23 15:16] LABS: Actual Bicarbonate (HCO3a) 17.3 mEq/L (22-28); Analyzer IN Cardio ER; Base Excess (BEa) -4.1 mEq/L (-2.0 to +3.0); Carboxyhemoglobin (COHb) 1.3 gm% (0.0-3.0); Hemoglobin (Hb) 14.9 g/dL (14.0-18.0); Potassium - ABG Lab 3.05 mmol/L (3.70-5.30); pH, Arterial 7.48 (7.35-7.45)
[2022-03-23 15:20] LABS: CO2 Tension 23.9 mmHg (35.0-45.0); O2 Tension (PaO2), arterial 51.6 mmHg (> 80.0)
[2022-03-23 15:22] LABS: ALV-art Gradient 146.685 mmHg (0-20); Puncture Site RRA
[2022-03-23 17:13] VITALS: BMI 19.0
[2022-03-23 17:30] LABS: Anion Gap 16 mmol/L (10-20); BUN (Urea Nitrogen) 30 mg/dL (8.4-25.7); Calc. Creatinine Clearance 53 mL/min (70-130); Calcium 8.2 mg/dL (7.8-10.44); Carbon Dioxide 14 mmol/L (23-31); Chloride 92 mmol/L (98-107); Estimated GFR 71; Glucose 105 mg/dL (80-115); Potassium 3.1 mmol/L (3.5-5.1)
[2022-03-23] MEDS: Nicotine 21 MG PATCH TD SCH (17:44)
[2022-03-23 17:45] LABS: Sodium 119 mmol/L (136-145)
[2022-03-23] MEDS: Sodium Chloride 0.9% 1,000 ML IV SCH (17:45)
[2022-03-23 17:58] LABS: Phosphorus 1.5 mg/dL (2.3-4.7)
[2022-03-23] MEDS ORDERED: Phenazopyridine HCl 95 MG TAB PO SCH (18:00)
[2022-03-23] MEDS ORDERED: PHOS-NAK 1 PKT PACK PO SCH (18:15)
[2022-03-23] MEDS ORDERED: NOREPINEPHRINE 8 MG/250 ML-D5W 250 ML ONE (19:23)
[2022-03-23] MEDS ORDERED: Potassium Chloride 20 MEQ TAB PO SCH (20:45)
[2022-03-23 21:04] LABS: Troponin I 1.157 ng/mL (< 0.028)
[2022-03-23 21:49] LABS: Magnesium 1.8 mg/dL (1.6-2.6)
[2022-03-23] MEDS: Atorvastatin Calcium 40 MG TAB PO SCH (22:14)
[2022-03-23] MEDS: Cefepime 2 GM in Sodium Chloride 0.9% 100 ML IVPB SCH (23:17)
[2022-03-24 00:28] LABS: Critical Call Chem Troponin I RESULT DECREASING; Troponin I 1.031 ng/mL (< 0.028)
[2022-03-24] MEDS: Acetaminophen 325 MG TAB PO PRN ×2 (01:03→21:08)
[2022-03-24 01:36] LABS: Anion Gap 17 mmol/L (10-20); BUN (Urea Nitrogen) 32 mg/dL (8.4-25.7); Calc. Creatinine Clearance 45 mL/min (70-130); Calcium 8.1 mg/dL (7.8-10.44); Carbon Dioxide 14 mmol/L (23-31); Chloride 94 mmol/L (98-107); Estimated GFR 59; Glucose 123 mg/dL (80-115); Potassium 3.2 mmol/L (3.5-5.1); Sodium 122 mmol/L (136-145)
[2022-03-24] MEDS: Sodium Chloride 0.9% 1,000 ML IV SCH ×2 (01:51→12:37)
[2022-03-24] MEDS: NOREPINEPHRINE 8 MG/250 ML-D5W 250 ML IVPB SCH ×2 (01:56→12:37)
[2022-03-24] MEDS ORDERED: Melatonin 3 MG TAB PO SCH (02:00)
[2022-03-24 05:03] LABS: Anion Gap 16 mmol/L (10-20); BUN (Urea Nitrogen) 27 mg/dL (8.4-25.7); Calc. Creatinine Clearance 55 mL/min (70-130); Calcium 8.1 mg/dL (7.8-10.44); Carbon Dioxide 15 mmol/L (23-31); Chloride 94 mmol/L (98-107); Estimated GFR 74; Glucose 129 mg/dL (80-115); Potassium 3.1 mmol/L (3.5-5.1); Sodium 122 mmol/L (136-145)
[2022-03-24 05:23] LABS: Phosphorus 3.6 mg/dL (2.3-4.7)
[2022-03-24 05:28] LABS: Band 31 % (5-11); Hemoglobin 14.2 g/dL (14.0-18.0); Lymphocytes 4 % (21-51); MDiff Complete? YES; Mean Corpuscular HGB CONC 34.5 g/dL (32.0-36.0); Mean Corpuscular Volume 98.6 fl (78.0-98.0); Mean Platelet Volume 8.1 fL (7.4-10.4); Metamyelocyte 2 % (0-0); Monocytes 1 % (0-10); Myelocyte 3 % (0-0); Neutrophil 59 % (42-75); Platelet Count 118 10x3/uL (130-400); Platelet Morphology Comment Appears Decreased; RBC Distribution Width 12.5 % (11.5-14.5); Red Blood Cell (RBC) Count 4.19 mill/uL (4.70-6.10); Vacuoles SLIGHT; White Blood Cell (WBC) Count 25.5 10x3/uL (4.8-10.8)
[2022-03-24] MEDS ORDERED: Electrolyte Replacement Protocol 1 EACH FS ONE (06:50)
[2022-03-24] MEDS ORDERED: Potassium Chloride 20 MEQ TAB PO SCH (07:15)
[2022-03-24] MEDS ORDERED: Electrolyte Replacement Protocol FS PRN (07:15)
[2022-03-24] MEDS: Cefepime 2 GM in Sodium Chloride 0.9% 100 ML IVPB SCH ×3 (07:56→23:47)
[2022-03-24] MEDS: predniSONE 20 MG TAB PO SCH (07:57)
[2022-03-24] MEDS: Enoxaparin Sodium 40 MG/0.4 ML SYRINGE SC SCH (07:58)
[2022-03-24] MEDS: Folic Acid 1 MG TAB PO SCH (07:58)
[2022-03-24] MEDS: Aspirin 81 mg Enteric Coated Tablet PO SCH (07:58)
[2022-03-24] MEDS: Multivit, Therapeutic 1 TAB PO SCH (07:58)
[2022-03-24] MEDS: Famotidine 20 MG TAB PO SCH ×2 (08:00→20:04)
[2022-03-24 08:22] LABS: Troponin I 8.113 ng/mL (< 0.028)
[2022-03-24] MEDS ORDERED: FLU VACC QS2022-23(65YR UP)/PF 240 MCG/0.7 ML SYRINGE IM ONE (09:00)
[2022-03-24] MEDS ORDERED: Phenazopyridine HCl 100 MG TAB PO SCH (09:00)
[2022-03-24] MEDS ORDERED: Magnesium 2 GM/50 ML(in water) 2 GM in Premix Bag 1 BAG IVPB SCH (09:00)
[2022-03-24] MEDS: Phenazopyridine HCl 100 MG TAB PO SCH ×3 (09:36→17:20)
[2022-03-24] MEDS ORDERED: VANCOMYCIN IVPB PRN (11:51)
[2022-03-24] MEDS ORDERED: VANCOMYCIN 1.25 GM/250 ML BAG 1.25 GM in Premix Bag 1 BAG IVPB SCH (12:00)
[2022-03-24 12:14] LABS: Potassium 3.6 mmol/L (3.5-5.1)
[2022-03-24] MEDS: Nicotine 21 MG PATCH TD SCH (16:02)
[2022-03-24] MEDS: Atorvastatin Calcium 40 MG TAB PO SCH (20:04)
[2022-03-24] MEDS ORDERED: VANCOMYCIN 1.25 GM/250 ML BAG IVPB SCH (21:00)
[2022-03-25 05:33] LABS: Hemoglobin 12.6 g/dL (14.0-18.0); Mean Corpuscular HGB CONC 34.2 g/dL (32.0-36.0); Mean Corpuscular Hemoglobin 33.5 pg (27.0-31.0); Mean Corpuscular Volume 97.9 fl (78.0-98.0); Mean Platelet Volume 8.2 fL (7.4-10.4); Platelet Count 104 10x3/uL (130-400); RBC Distribution Width 12.4 % (11.5-14.5); Red Blood Cell (RBC) Count 3.78 mill/uL (4.70-6.10); White Blood Cell (WBC) Count 21.3 10x3/uL (4.8-10.8)
[2022-03-25 05:35] LABS: Anion Gap 10 mmol/L (10-20); BUN (Urea Nitrogen) 18 mg/dL (8.4-25.7); Calc. Creatinine Clearance 95 mL/min (70-130); Calcium 8.1 mg/dL (7.8-10.44); Carbon Dioxide 22 mmol/L (23-31); Chloride 96 mmol/L (98-107); Estimated GFR 106; Glucose 116 mg/dL (80-115); Magnesium 2.2 mg/dL (1.6-2.6); Sodium 125 mmol/L (136-145)
[2022-03-25 06:38] LABS: Band 46 % (5-11); Lymphocytes 2 % (21-51); MDiff Complete? YES; Monocytes 6 % (0-10); Neutrophil 46 % (42-75); Platelet Morphology Comment Appears Decreased
[2022-03-25 07:11] LABS: Critical Call Chem Troponin I RESULT DECREASING; Troponin I 6.304 ng/mL (< 0.028)
[2022-03-25 07:48] LABS: INR-International Normal Ratio 0.9; PTT 31.6 sec (22.9-36.1)
[2022-03-25] MEDS ORDERED: Potassium Chloride 20 MEQ TAB PO SCH (08:00)
[2022-03-25] MEDS: predniSONE 20 MG TAB PO SCH (08:01)
[2022-03-25] MEDS: Multivit, Therapeutic 1 TAB PO SCH (08:01)
[2022-03-25] MEDS: Folic Acid 1 MG TAB PO SCH (08:01)
[2022-03-25] MEDS: Enoxaparin Sodium 40 MG/0.4 ML SYRINGE SC SCH (08:01)
[2022-03-25] MEDS: Aspirin 81 mg Enteric Coated Tablet PO SCH (08:02)
[2022-03-25] MEDS: Famotidine 20 MG TAB PO SCH ×2 (08:02→20:16)
[2022-03-25] MEDS: Cefepime 2 GM in Sodium Chloride 0.9% 100 ML IVPB SCH ×2 (08:02→15:03)
[2022-03-25] MEDS: Acetaminophen 325 MG TAB PO PRN (08:06)
[2022-03-25] MEDS: Phenazopyridine HCl 100 MG TAB PO SCH ×3 (08:27→18:13)
[2022-03-25] MEDS: Lorazepam 2 MG/ML VIAL SLOW IVP PRN ×3 (09:29→20:17)
[2022-03-25 11:21] LABS: Vancomycin, Trough 5.5 ug/mL
[2022-03-25] MEDS ORDERED: Potassium Chloride 40 MEQ in Premix Bag 1 BAG IVPB SCH (13:00)
[2022-03-25 14:54] LABS: Chloride 97 mmol/L (98-107); Potassium 3.7 mmol/L (3.5-5.1); Sodium 128 mmol/L (136-145)
[2022-03-25 14:55] LABS: Calcium 8.5 mg/dL (7.8-10.44); Glucose 119 mg/dL (80-115)
[2022-03-25 14:57] LABS: Anion Gap 16 mmol/L (10-20); Carbon Dioxide 19 mmol/L (23-31)
[2022-03-25] MEDS: Nicotine 21 MG PATCH TD SCH (14:57)
[2022-03-25] MEDS: Sodium Chloride 0.9% 1,000 ML IV SCH (14:58)
[2022-03-25 14:59] LABS: Calc. Creatinine Clearance 90 mL/min (70-130); Estimated GFR 104
[2022-03-25 15:00] LABS: BUN (Urea Nitrogen) 16 mg/dL (8.4-25.7)
[2022-03-25] MEDS: Atorvastatin Calcium 40 MG TAB PO SCH (20:16)
[2022-03-26] MEDS ORDERED: Lorazepam 2 MG/ML VIAL IM PRN (00:10)
[2022-03-26] MEDS ORDERED: Sterile Water 10 ML VIAL FS PRN (00:45)
[2022-03-26] MEDS ORDERED: Ziprasidone 20 MG VIAL IM SCH (00:45)
[2022-03-26] MEDS: Cefepime 2 GM in Sodium Chloride 0.9% 100 ML IVPB SCH ×4 (01:04→23:35)
[2022-03-26] MEDS: Lorazepam 2 MG/ML VIAL SLOW IVP SCH ×5 (01:05→23:42)
[2022-03-26] MEDS: Sodium Chloride 0.9% 1,000 ML IV SCH ×2 (05:22→23:36)
[2022-03-26 06:00] LABS: Hemoglobin 14.4 g/dL (14.0-18.0); Mean Corpuscular Hemoglobin 32.5 pg (27.0-31.0); Mean Corpuscular Volume 98.5 fl (78.0-98.0); Mean Platelet Volume 8.2 fL (7.4-10.4); Platelet Count 113 10x3/uL (130-400); RBC Distribution Width 12.9 % (11.5-14.5); Red Blood Cell (RBC) Count 4.43 mill/uL (4.70-6.10); White Blood Cell (WBC) Count 21.5 10x3/uL (4.8-10.8)
[2022-03-26 06:21] LABS: ALT (SGPT) 64 U/L (8-55); AST (SGOT) 86 U/L (5-34); Albumin 3.1 g/dL (3.4-4.8); Alkaline Phosphatase 105 U/L (40-110); Anion Gap 11 mmol/L (10-20); BUN (Urea Nitrogen) 15 mg/dL (8.4-25.7); Bilirubin, Total 0.9 mg/dL (0.2-1.2); Calc. Creatinine Clearance 89 mL/min (70-130); Calcium 8.8 mg/dL (7.8-10.44); Carbon Dioxide 24 mmol/L (23-31); Chloride 101 mmol/L (98-107); Estimated GFR 104; Globulin 2.5 g/dL (2.4-3.5); Glucose 87 mg/dL (80-115); Potassium 3.7 mmol/L (3.5-5.1); Protein, Total 5.6 g/dL (5.8-8.1); Sodium 132 mmol/L (136-145)
[2022-03-26 06:35] LABS: Band 26 % (5-11); Lymphocytes 1 % (21-51); MDiff Complete? YES; Monocytes 2 % (0-10); Neutrophil 71 % (42-75); Platelet Morphology Comment Appears Decreased
[2022-03-26] MEDS: Enoxaparin Sodium 40 MG/0.4 ML SYRINGE SC SCH ×2 (09:00→09:15)
[2022-03-26] MEDS: Multivit, Therapeutic 1 TAB PO SCH (09:15)
[2022-03-26] MEDS: Phenazopyridine HCl 100 MG TAB PO SCH ×3 (09:15→17:39)
[2022-03-26] MEDS: Famotidine 20 MG TAB PO SCH ×2 (09:15→20:33)
[2022-03-26] MEDS: predniSONE 20 MG TAB PO SCH (09:15)
[2022-03-26] MEDS: Folic Acid 1 MG TAB PO SCH (09:15)
[2022-03-26] MEDS: Thiamine 100 MG TAB PO SCH (09:16)
[2022-03-26] MEDS: Nicotine 21 MG PATCH TD SCH (15:22)
[2022-03-26] MEDS: Lorazepam 2 MG/ML VIAL SLOW IVP PRN ×2 (15:40→20:33)
[2022-03-26] MEDS ORDERED: predniSONE 20 MG TAB PO SCH (17:30)
[2022-03-27] MEDS ORDERED: Lorazepam 2 MG/ML VIAL SLOW IVP PRN (00:10)
[2022-03-27] MEDS: Lorazepam 2 MG/ML VIAL SLOW IVP SCH (05:55)
[2022-03-27 07:19] LABS: Anion Gap 14 mmol/L (10-20); BUN (Urea Nitrogen) 19 mg/dL (8.4-25.7); Calc. Creatinine Clearance 88 mL/min (70-130); Calcium 8.8 mg/dL (7.8-10.44); Carbon Dioxide 19 mmol/L (23-31); Chloride 108 mmol/L (98-107); Estimated GFR 103; Glucose 88 mg/dL (80-115); Potassium 3.9 mmol/L (3.5-5.1); Sodium 137 mmol/L (136-145)
[2022-03-27 07:38] LABS: Mean Corpuscular HGB CONC 31.8 g/dL (32.0-36.0); Mean Corpuscular Hemoglobin 32.1 pg (27.0-31.0); Mean Platelet Volume 8.9 fL (7.4-10.4); Platelet Count 91 10x3/uL (130-400); RBC Distribution Width 13.3 % (11.5-14.5); Red Blood Cell (RBC) Count 5.29 mill/uL (4.70-6.10); White Blood Cell (WBC) Count 18.8 10x3/uL (4.8-10.8)
[2022-03-27] MEDS ORDERED: predniSONE 20 MG TAB PO SCH (08:00)
[2022-03-27 08:33] LABS: Band 10 % (5-11); Lymphocytes 9 % (21-51); MDiff Complete? YES; Monocytes 6 % (0-10); Neutrophil 75 % (42-75); Platelet Morphology Comment Appears Decreased; Polychromasia SLIGHT = 2-3 cells (100X) (0-2/hpf)
[2022-03-27] MEDS: Cefepime 2 GM in Sodium Chloride 0.9% 100 ML IVPB SCH ×3 (08:46→23:39)
[2022-03-27] MEDS: Phenazopyridine HCl 100 MG TAB PO SCH ×3 (08:46→17:25)
[2022-03-27] MEDS: Folic Acid 1 MG TAB PO SCH (08:47)
[2022-03-27] MEDS: Famotidine 20 MG TAB PO SCH ×2 (08:47→22:07)
[2022-03-27] MEDS: Multivit, Therapeutic 1 TAB PO SCH (08:47)
[2022-03-27] MEDS: Thiamine 100 MG TAB PO SCH (08:47)
[2022-03-27] MEDS: Enoxaparin Sodium 40 MG/0.4 ML SYRINGE SC SCH (08:48)
[2022-03-27] MEDS: Nicotine 21 MG PATCH TD SCH (13:52)
[2022-03-27] MEDS: Sodium Chloride 0.9% 1,000 ML IV SCH (22:02)
[2022-03-28] MEDS ORDERED: Lorazepam 2 MG/ML VIAL SLOW IVP PRN (00:10)
[2022-03-28] MEDS ORDERED: Lorazepam 2 MG/ML VIAL SLOW IVP SCH (00:15)
[2022-03-28 05:12] LABS: Hemoglobin 15.2 g/dL (14.0-18.0); Mean Corpuscular HGB CONC 32.2 g/dL (32.0-36.0); Mean Corpuscular Hemoglobin 31.9 pg (27.0-31.0); Mean Corpuscular Volume 99.1 fl (78.0-98.0); Mean Platelet Volume 8.8 fL (7.4-10.4); Platelet Count 125 10x3/uL (130-400); RBC Distribution Width 13.2 % (11.5-14.5); Red Blood Cell (RBC) Count 4.76 mill/uL (4.70-6.10); White Blood Cell (WBC) Count 15.1 10x3/uL (4.8-10.8)
[2022-03-28 05:36] LABS: BUN (Urea Nitrogen) 22 mg/dL (8.4-25.7); Calc. Creatinine Clearance 84 mL/min (70-130); Calcium 8.1 mg/dL (7.8-10.44); Carbon Dioxide 24 mmol/L (23-31); Estimated GFR 102; Glucose 135 mg/dL (80-115)
[2022-03-28 05:43] LABS: Band 9 % (5-11); Lymphocytes 14 % (21-51); MDiff Complete? YES; Macrocytosis SLIGHT = 6-15 cells (100X) (0-5/hpf); Monocytes 2 % (0-10); Neutrophil 75 % (42-75); Ovalocytes SLIGHT = 2-5 cells (100X) (0-1/hpf); Platelet Morphology Comment Appears Decreased
[2022-03-28 05:45] LABS: Anion Gap 11 mmol/L (10-20); Chloride 104 mmol/L (98-107); Potassium 3.5 mmol/L (3.5-5.1); Sodium 135 mmol/L (136-145)
[2022-03-28] MEDS: Cefepime 2 GM in Sodium Chloride 0.9% 100 ML IVPB SCH ×2 (08:10→16:03)
[2022-03-28] MEDS: predniSONE 20 MG TAB PO SCH (08:11)
[2022-03-28] MEDS: Phenazopyridine HCl 100 MG TAB PO SCH ×2 (08:11→14:14)
[2022-03-28] MEDS: Multivit, Therapeutic 1 TAB PO SCH (08:11)
[2022-03-28] MEDS: Enoxaparin Sodium 40 MG/0.4 ML SYRINGE SC SCH (08:11)
[2022-03-28] MEDS: Famotidine 20 MG TAB PO SCH ×2 (08:11→21:43)
[2022-03-28] MEDS: Thiamine 100 MG TAB PO SCH (08:11)
[2022-03-28] MEDS: Folic Acid 1 MG TAB PO SCH (08:11)
[2022-03-28] MEDS ORDERED: Potassium Chloride 20 MEQ TAB PO SCH (09:30)
[2022-03-28] MEDS: Nicotine 21 MG PATCH TD SCH (14:48)
[2022-03-28] MEDS: chlordiazePOXIDE HCl 5 MG CAP PO SCH ×2 (15:00→21:42)
[2022-03-28] MEDS: Sodium Chloride 0.9% 1,000 ML IV SCH (21:42)
[2022-03-29] MEDS ORDERED: Lorazepam 2 MG/ML VIAL SLOW IVP PRN (00:10)
[2022-03-29] MEDS: Cefepime 2 GM in Sodium Chloride 0.9% 100 ML IVPB SCH ×2 (02:03→08:19)
[2022-03-29 05:23] LABS: Hemoglobin 14.3 g/dL (14.0-18.0); Mean Corpuscular HGB CONC 33.3 g/dL (32.0-36.0); Mean Corpuscular Hemoglobin 32.9 pg (27.0-31.0); Mean Corpuscular Volume 98.7 fl (78.0-98.0); Mean Platelet Volume 8.6 fL (7.4-10.4); Platelet Count 148 10x3/uL (130-400); RBC Distribution Width 13.3 % (11.5-14.5); Red Blood Cell (RBC) Count 4.35 mill/uL (4.70-6.10); White Blood Cell (WBC) Count 10.9 10x3/uL (4.8-10.8)
[2022-03-29 05:38] LABS: Anion Gap 9 mmol/L (10-20); BUN (Urea Nitrogen) 15 mg/dL (8.4-25.7); Calc. Creatinine Clearance 95 mL/min (70-130); Calcium 7.9 mg/dL (7.8-10.44); Carbon Dioxide 23 mmol/L (23-31); Chloride 108 mmol/L (98-107); Estimated GFR 106; Glucose 120 mg/dL (80-115); Potassium 3.7 mmol/L (3.5-5.1); Sodium 136 mmol/L (136-145)
[2022-03-29 05:45] LABS: Band 15 % (5-11); Eosinophils 1 % (0-10); Hypochromia SLIGHT = 6-15 cells (100X) (0-5/hpf); Lymphocytes 8 % (21-51); MDiff Complete? YES; Monocytes 15 % (0-10); Neutrophil 61 % (42-75); Platelet Morphology Comment Appears Adequate
[2022-03-29] MEDS: Phenazopyridine HCl 100 MG TAB PO SCH ×3 (07:36→13:40)
[2022-03-29] MEDS: Famotidine 20 MG TAB PO SCH (08:20)
[2022-03-29] MEDS: Folic Acid 1 MG TAB PO SCH (08:20)
[2022-03-29] MEDS: Multivit, Therapeutic 1 TAB PO SCH (08:20)
[2022-03-29] MEDS: predniSONE 20 MG TAB PO SCH (08:20)
[2022-03-29] MEDS: Thiamine 100 MG TAB PO SCH (08:20)
[2022-03-29] MEDS ORDERED: chlordiazePOXIDE HCl 5 MG CAP PO SCH (09:00)
[2022-03-29 09:08] VITALS: BP 153/96; TEMP 97.2
[2022-03-29] MEDS: Nicotine 21 MG PATCH TD SCH (12:27)
[2022-03-31] MEDS ORDERED: Aspirin 81 mg Enteric Coated Tablet PO SCH (09:00)
[2022-03-31] MEDS ORDERED: Enoxaparin Sodium 40 MG/0.4 ML SYRINGE SC SCH (09:00)
== END 2022-03-29 15:30 | disposition home or self-care (01) | DRG 871 ==
LOC: ERS 11:01 → IMCU/EMU 13:22 → CCU 19:31 → MSONC 03-25 17:59
PROVIDERS: ADMIT Family Medicine; ATTEND Family Medicine
PROC: 02HV33Z Insertion of Infusion Device into Superior Vena Cava, Percutaneous Approach (ICD-10-PCS; principal; 2022-03-23)
PROC: B548ZZA Ultrasonography of Superior Vena Cava, Guidance (ICD-10-PCS; 2022-03-23)
PROC: 3E043XZ Introduction of Vasopressor into Central Vein, Percutaneous Approach (ICD-10-PCS; 2022-03-23)
PROC: 0T9B70Z Drainage of Bladder with Drainage Device, Via Natural or Artificial Opening (ICD-10-PCS; 2022-03-23)
PROC: 3E03329 Introduction of Other Anti-infective into Peripheral Vein, Percutaneous Approach (ICD-10-PCS; 2022-03-23)
DX: A41.51 Sepsis due to Escherichia coli [E. coli] (principal); I21.A1 Myocardial infarction type 2; J96.01 Acute respiratory failure with hypoxia; R65.21 Severe sepsis with septic shock; J44.1 Chronic obstructive pulmonary disease with (acute) exacerbation; E87.1 Hypo-osmolality and hyponatremia; N39.0 Urinary tract infection, site not specified; E87.3 Alkalosis; I10 Essential (primary) hypertension; E78.00 Pure hypercholesterolemia, unspecified; F17.210 Nicotine dependence, cigarettes, uncomplicated; Z66 Do not resuscitate; E87.6 Hypokalemia; I73.9 Peripheral vascular disease, unspecified; Z20.822 Contact with and (suspected) exposure to COVID-19; I07.1 Rheumatic tricuspid insufficiency; Z98.890 Other specified postprocedural states; Z79.82 Long term (current) use of aspirin; Z79.899 Other long term (current) drug therapy; Z78.1 Physical restraint status
CPT/HCPCS: 36415; 36416; 36600; 71045; 71275; 76770; 80048; 80053; 80202; 81003; 81015; 82550; 82570; 82805; 83605; 83690; 83735; 83880; 83930; 83935; 84100; 84145; 84300; 84484; 85025; 85379; 85610; 85730; 87040; 87077; 87086; 87149; 87186; 87804; 93005; 93010; 93306; 94640; 96365; 96375; J0692; J1650; J1956; J2060; J2930; J3370; J3370-JW; J3475; J3480; J3486; J3490; J7050; J7512; J7611; J7620; Q9967; U0003; U0005

== ENCOUNTER 2022-04-23 08:47 | Outpatient (CLI) | payer BC, MEDICARE ==
[2022-04-23 11:32] VITALS: BP 131/89; TEMP 97.7
== END 2022-04-23 11:00 | disposition home or self-care (01) ==
LOC: CT 08:47
PROVIDERS: ATTEND Student in an Organized Health Care Education/Training Program
DX: R91.8 Other nonspecific abnormal finding of lung field (principal)
CPT/HCPCS: 76380

== ENCOUNTER 2022-07-30 13:24 | Outpatient (CLI) | payer BC, MEDICARE ==
[~2022-07-30 13:24] MED LIST changes: +Iopamidol 370 76% 100 ML VIAL ONE; -Iopamidol-370 76% 500 ML 1 ML ONE; -Lorazepam 1 MG TAB PO PRN
== END 2022-07-30 13:25 | disposition home or self-care (01) ==
LOC: CT 13:24
PROVIDERS: ATTEND Thoracic Surgery (Cardiothoracic Vascular Surgery)
DX: R91.8 Other nonspecific abnormal finding of lung field (principal)
CPT/HCPCS: 71270; 82565; Q9967

== ENCOUNTER 2022-09-15 10:57 | Emergency (ER) | payer BC, MEDICARE ==
[2022-09-15 12:17] LABS: #Eosinphils 0.2 thou/uL (0.0-0.7); #Monocytes 0.8 thou/uL (0.11-0.59); #Neutrophils 5.7 thou/uL (1.40-6.50); %Basophils 0.2 % (0.0-1.0); %Eosinophils 1.9 % (0.0-10.0); %Lymphocytes 20.5 % (21.0-51.0); %Monocytes 9.7 % (0.0-10.0); %Neutrophils 67.2 % (42.0-75.0); Hemoglobin 17.2 g/dL (14.0-18.0); Mean Corpuscular HGB CONC 34.6 g/dL (32.0-36.0); Mean Corpuscular Hemoglobin 31.2 pg (27.0-31.0); Mean Corpuscular Volume 90.2 fl (78.0-98.0); Mean Platelet Volume 8.7 fL (7.4-10.4); Platelet Count 241 10x3/uL (130-400); RBC Distribution Width 12.8 % (11.5-14.5); Red Blood Cell (RBC) Count 5.51 mill/uL (4.70-6.10); White Blood Cell (WBC) Count 8.5 10x3/uL (4.8-10.8)
[2022-09-15 12:40] LABS: ALT (SGPT) 31 U/L (8-55); AST (SGOT) 26 U/L (5-34); Albumin 4.5 g/dL (3.4-4.8); Alkaline Phosphatase 153 U/L (40-110); Anion Gap 15 mmol/L (10-20); BUN (Urea Nitrogen) 11 mg/dL (8.4-25.7); Calc. Creatinine Clearance 0 mL/min (70-130); Calcium 10.3 mg/dL (7.8-10.44); Carbon Dioxide 25 mmol/L (23-31); Chloride 93 mmol/L (98-107); Estimated GFR 101; Globulin 3.1 g/dL (2.4-3.5); Glucose 94 mg/dL (80-115); Potassium 4.3 mmol/L (3.5-5.1); Protein, Total 7.6 g/dL (5.8-8.1); Sodium 129 mmol/L (136-145)
[2022-09-15] MEDS ORDERED: methylPREDNISolone Sod Succ/PF 125 MG/2 ML VIAL ONE (14:20)
[2022-09-15] MEDS ORDERED: Albuterol 2.5 MG/0.5 ML NEB ONE (14:23)
[2022-09-15] MEDS ORDERED: Ipratropium Bromide 2.5 ml Neb ONE (14:23)
[2022-09-15 15:15] LABS: CK (CPK) 58 U/L (30-200); Lipase 14 U/L (8-78); Magnesium 1.7 mg/dL (1.6-2.6)
[2022-09-15 15:35] LABS: SARS-CoV-2 NAA Rapid Test Not Detected (NotDetected)
== END 2022-09-15 16:16 | disposition home or self-care (01) ==
LOC: ERS 10:57
DX: J44.1 Chronic obstructive pulmonary disease with (acute) exacerbation (principal); I10 Essential (primary) hypertension; E78.00 Pure hypercholesterolemia, unspecified; F17.210 Nicotine dependence, cigarettes, uncomplicated; Z79.899 Other long term (current) drug therapy; Z20.822 Contact with and (suspected) exposure to COVID-19; Z79.82 Long term (current) use of aspirin
CPT/HCPCS: 36415; 71045; 80053; 82550; 83690; 83735; 83880; 84484; 85025; 93005; 96374; J2930; J7611

== ENCOUNTER 2023-02-11 13:21 | Outpatient (CLI) | payer MEDICARE | END 2023-02-11 13:22 | disposition home or self-care (01) | LOC: BICCT 13:21 | PROVIDERS: ATTEND Thoracic Surgery (Cardiothoracic Vascular Surgery) | DX: R91.8 Other nonspecific abnormal finding of lung field (principal) | CPT/HCPCS: 71260; 82565 ==

== ENCOUNTER 2024-01-24 03:09 | Emergency (ER) | payer MEDICARE ==
[2024-01-24 04:09] LABS: #Basophils 0.04 10x3/uL (0.0-0.2); %Basophils 0.5 % (0.0-1.0); %Eosinophils 9.6 % (0.0-10.0); %Lymphocytes 18.6 % (21.0-51.0); %Monocytes 4.2 % (0.0-10.0); %Neutrophils 66.6 % (42.0-75.0); Hematocrit 50.1 % (42.0-52.0); Hemoglobin 16.6 g/dL (14.0-18.0); Mean Corpuscular HGB CONC 33.1 g/dL (32.0-36.0); Mean Corpuscular Hemoglobin 32.9 pg (27.0-31.0); Mean Corpuscular Volume 99.4 fL (78.0-98.0); Mean Platelet Volume 8.8 fL (7.4-10.4); Platelet Count 216 10x3/uL (130-400); Red Blood Cell (RBC) Count 5.04 mill/uL (4.70-6.10)
[2024-01-24 04:34] LABS: ALT (SGPT) 29 U/L (8-55); AST (SGOT) 24 U/L (5-34); Albumin 4.1 g/dL (3.4-4.8); Alkaline Phosphatase 113 U/L (40-110); Anion Gap 12 mmol/L (10-20); BUN (Urea Nitrogen) 10 mg/dL (8.4-25.7); Bilirubin, Total 0.4 mg/dL (0.2-1.2); Calc. Creatinine Clearance 0 mL/min (70-130); Calcium 9.6 mg/dL (7.8-10.44); Carbon Dioxide 23 mmol/L (23-31); Chloride 104 mmol/L (98-107); Estimated GFR 102; Glucose 115 mg/dL (80-115); Potassium 5.2 mmol/L (3.5-5.1); Protein, Total 7.1 g/dL (5.8-8.1); Sodium 134 mmol/L (136-145)
[2024-01-24 04:41] LABS: Troponin I Less than 0.010 ng/mL (< 0.028)
[2024-01-24] MEDS ORDERED: Ipratropium/Albuterol 3 ML NEB ONE (04:45)
[2024-01-24] MEDS ORDERED: Ketorolac Tromethamine 30 MG (1 mL) VIAL ONE (07:50)
[2024-01-24 08:37] LABS: Bacteria/HPF None Seen HPF (None Seen); Bilirubin Negative (Negative); Blood, Urine Negative (Negative); CAUTI Indications for Culture Pelvic or flank pain; Clarity Clear (Clear); Glucose, Urine (Dipstick) Normal (Negative); Ketone, Urine Negative (Negative); Leukocyte Negative Leu/uL (Negative); Nitrite Negative (Negative); Protein, Urine (Dipstick) Negative (Neg-Trace); RBC/HPF 0-3 HPF (0-3); Specific Gravity, Urine 1.003 (1.002-1.036); Squamous Epithelial None Seen HPF (0-3); Urobilinogen Normal mg/dL (Less than 2); WBC/HPF None Seen HPF (0-3)
[2024-01-24 08:39] LABS: Urine Culture Reflex No No
== END 2024-01-24 10:26 | disposition home or self-care (01) ==
LOC: ERS 03:09
DX: M54.50 Low back pain, unspecified (principal); J44.1 Chronic obstructive pulmonary disease with (acute) exacerbation; I10 Essential (primary) hypertension; F17.210 Nicotine dependence, cigarettes, uncomplicated; E78.00 Pure hypercholesterolemia, unspecified; Z79.82 Long term (current) use of aspirin; Z79.51 Long term (current) use of inhaled steroids; Z79.899 Other long term (current) drug therapy
CPT/HCPCS: 71045; 74176; 80053; 81001; 83880; 84484; 85025; 93005; 94640; 96374; 96375; 99285; J1885; 36415; J7620

== ENCOUNTER 2025-01-04 10:18 | Outpatient (CLI) | payer MEDICARE ==
[2025-01-04 11:06] LABS: Estimated GFR - POC 105.0
[2025-01-04] MEDS ORDERED: Iopamidol 370 76% 100 ML VIAL ONE (12:53)
== END 2025-01-04 10:19 | disposition home or self-care (01) ==
LOC: CT 10:18
PROVIDERS: ATTEND Thoracic Surgery (Cardiothoracic Vascular Surgery)
DX: R91.8 Other nonspecific abnormal finding of lung field (principal)
CPT/HCPCS: 36415; 71260; 82565; Q9967